=== PATIENT | male | born 1940 | race Caucasian/White ===

== ENCOUNTER 2019-10-28 09:37 | Inpatient (IN) ==
--- NOTE | 2019-10-08 13:10 | PAT Medication Instructions ---
Medication Instructions Date of Service October 08, 2019 Home Medications albuterol sulfate 1 inh INHALATION QID PRN albuterol sulfate 2.5 mg INHALATION Q6H PRN aspirin [Aspirin Low Dose] 81 mg PO DAILY beclomethasone dipropionate [Qvar RediHaler] 4 inh INHALATION Q12H cyclosporine [Cequa] 1 drp OPHTHALMIC (EYE) Q12H doxycycline monohydrate 50 mg PO DAILY isosorbide mononitrate 60 mg PO QAM labetalol 200 mg PO BID losartan 100 mg PO HS magnesium chloride [Slow-Mag] 143 mg PO HS montelukast 10 mg PO HS [id number] [Multivitamin 50 Plus] 1 tab PO DAILY nitroglycerin [Nitrostat] 0.4 mg BUCCAL UD PRN pantoprazole 40 mg PO QPM potassium gluconate 595 mg PO DAILY probenecid 500 mg PO BID psyllium husk [Metamucil] 1 tbsp PO DAILY salmeterol [Serevent Diskus] 2 inh INHALATION BID tamsulosin 0.4 mg PO BID Continue as directed doxycycline monohydrate 50 mg PO DAILY ASK your prescriber and surgeon aspirin [Aspirin Low Dose] 81 mg PO DAILY DO NOT take the morning of surgery dybrwwaiqdfk-ugyoaosm-vzopix [Multivitamin 50 Plus] 1 tab PO DAILY potassium gluconate 595 mg PO DAILY psyllium husk [Metamucil] 1 tbsp PO DAILY probenecid 500 mg PO BID (per Robinson Willson, VINH) Take morning of surgery With a small sip of water, OTHERWISE NOTHING TO EAT OR DRINK AFTER MIDNIGHT: albuterol sulfate 1 inh INHALATION QID PRN (if needed) albuterol sulfate 2.5 mg INHALATION Q6H PRN (if needed) beclomethasone dipropionate [Qvar RediHaler] 4 inh INHALATION Q12H cyclosporine [Cequa] 1 drp OPHTHALMIC (EYE) Q12H isosorbide mononitrate 60 mg PO QAM labetalol 200 mg PO BID salmeterol [Serevent Diskus] 2 inh INHALATION BID tamsulosin 0.4 mg PO BID Take evening before surgery albuterol sulfate 1 inh INHALATION QID PRN (if needed) albuterol sulfate 2.5 mg INHALATION Q6H PRN (if needed) beclomethasone dipropionate [Qvar RediHaler] 4 inh INHALATION Q12H cyclosporine [Cequa] 1 drp OPHTHALMIC (EYE) Q12H labetalol 200 mg PO BID losartan 100 mg PO HS magnesium chloride [Slow-Mag] 143 mg PO HS montelukast 10 mg PO HS pantoprazole 40 mg PO QPM probenecid 500 mg PO BID (per Robinson Willson PAC) salmeterol [Serevent Diskus] 2 inh INHALATION BID tamsulosin 0.4 mg PO BID Other Notes If you have any questions please call us at [phone] or [phone] or [phone] or [phone]
--- NOTE | 2019-10-08 13:22 | Anesthesiology Consultation ---
Date of Service October 08, 2019 Assessment & Plan (1) Encounter for pre-operative examination: COVID Status: As of 10/07 assessment, patient denies travel to endemic area, known exposure/sick contacts, or symptoms of COVID19. Patient instructed to follow strict social distancing guidelines, wear a mask in public and avoid travel for 14 days prior to surgery. Preoperative COVID19 testing to be completed prior to surgery. Patient made aware to self-isolate as much as possible between COVID testing and surgery. Chart Review Chart Review: Acceptable Risk for Surgery (pending surgeon-ordered cardio clearance 10/14 - Madie) and Patient seen in Pre Admission Testing Teaching & Discussion Instructed NPO after midnight before surgery, except medications with 15 cc of water. Medication instructions provided according to the PAT guidelines. History Surgery Operation Date: 10/28/19 11:45 Proposed Procedures p L4-S1 Decompression and Fusion, Spinal Cord Monitoring - Ramo Antonio, Height/Weight Height: 5 ft 10 in Weight: 102.3 kg Allergies Allergy/AdvReac Type Severity Reaction Status Date / Time diphtheria,pertussis Allergy Severe arm Verified 10/03/19 11:57 (acellular),te swelling [From Adacel(Tdap and redness Adolesn/Adult)(PF)] iodine Allergy Severe Hives Verified 10/03/19 11:55 dissolvable stitches AdvReac Severe does not Uncoded 10/03/19 11:57 disolve Medications Home Medications Medication Instructions Recorded Confirmed Last Taken albuterol sulfate 1 inh INHALATION QID PRN 10/03/19 10/03/19 Unknown albuterol sulfate 2.5 mg INHALATION Q6H PRN 10/03/19 10/03/19 Unknown aspirin [Aspirin Low Dose] 81 mg PO DAILY 10/03/19 10/03/19 Unknown beclomethasone dipropionate [Qvar 4 inh INHALATION Q12H 10/03/19 10/03/19 Unknown RediHaler] cyclosporine [Cequa] 1 drp OPHTHALMIC (EYE) Q12H 10/03/19 10/03/19 Unknown doxycycline monohydrate 50 mg PO DAILY 10/03/19 10/03/19 Unknown isosorbide mononitrate 60 mg PO QAM 10/03/19 10/03/19 Unknown labetalol 200 mg PO BID 10/03/19 10/03/19 Unknown losartan 100 mg PO HS 10/03/19 10/03/19 Unknown magnesium chloride [Slow-Mag] 143 mg PO HS 10/03/19 10/03/19 Unknown montelukast 10 mg PO HS 10/03/19 10/03/19 Unknown kkfvkgqkrlpr-rypnhyma-wihnci 1 tab PO DAILY 10/03/19 10/03/19 Unknown [Multivitamin 50 Plus] nitroglycerin [Nitrostat] 0.4 mg BUCCAL UD PRN 10/03/19 10/03/19 Unknown pantoprazole 40 mg PO QPM 10/03/19 10/03/19 Unknown potassium gluconate 595 mg PO DAILY 10/03/19 10/03/19 Unknown probenecid 500 mg PO BID 10/03/19 10/03/19 Unknown psyllium husk [Metamucil] 1 tbsp PO DAILY 10/03/19 10/03/19 Unknown salmeterol [Serevent Diskus] 2 inh INHALATION BID 10/03/19 10/03/19 Unknown tamsulosin 0.4 mg PO BID 10/03/19 10/03/19 Unknown Past Medical History Medical History Arteriolosclerosis Asthma BPH (benign prostatic hyperplasia) Chronic back pain CKD (chronic kidney disease) Cyst of left kidney monitoring. (found on MRI). no problems noted. Degenerative disc disease GERD (gastroesophageal reflux disease) Gout Hiatal hernia Hypertension Irregular heartbeat Dr. Ramachandran. unsure of name of irregular heartbeat Liver cyst "cluster of blood vessels" monitoring Osteoarthritis Sleep apnea CPAP (recently dx'd 09/05/2019) - to receive machine next week Spinal stenosis Exercise / Class Metabolic Activity II 4-5 Yardwork/Stairs/Walk up hill (Denies CP or SOB with 1 FOS, does 13 steps at home almost daily but limited by lumbar radiculopathy) Past Family History Family History Other No family history of adverse response to anesthesia Past Surgical History Surgical History H/O knee surgery right open ligament repair History of cardiac cath x2 (most recent in the early ). no stents. no [place]. History of cataract surgery bilateral History of cholecystectomy History of colonoscopy S/P breast biopsy right (benign) S/P inguinal hernia repair left x2 Past Anesthesia History No Hx of Anesthesia Complications and No Family Hx of Anesthesia Complications History of PONV No Hx of PONV and No Hx of Motion Sickness Social History Smoking Status: Former smoker tobacco type: cigarettes Do You Dip or Chew Tobacco: No Smoking End Date: 1978 Hx Alcohol Use: Yes alcohol intake frequency: holidays/special occasions only Hx Substance Use: No substance use type: does not use Review of Systems Pt denies any recent chest pain, shortness of breath, palpitations, fever or URI. +cough, chronic 2/2 asthma Physical Exam Vital Signs BP: 112/67 P: 75% RA SPO2: 95% RA T: 98.1 F R: 18 ENMT Mouth: + dentures (partial upper and lower) and + dental restorations (few crowns); no chipped teeth and no loose teeth Mallampati Class: I Neck + limited neck extension (mildly) and + facial hair (bushy gallegos, pt amenable to trimming prior to surgery) Respiratory normal respiratory effort Auscultation: lungs clear to auscultation bilaterally Cardiovascular Rate/Rhythm: regular rate and regular rhythm Heart Sounds: no murmur Testing Laboratory Results 10/08/19 13:02 10/08/19 13:00 PT 10.5 Seconds (9.0-12.0) 10/08/19 13:02 INR 1.0 (0.9-1.1) 10/08/19 13:02 APTT 29.4 Seconds (21.0-31.0) 10/08/19 13:02 Urine Color Yellow 10/08/19 13:02 Urine Appearance Clear (Clear) 10/08/19 13:02 Urine pH 5.0 (4.5-7.5) 10/08/19 13:02 Ur Specific [place] 1.022 (1.000-1.030) 10/08/19 13:02 Urine Protein Negative (Negative) 10/08/19 13:02 Urine Glucose (UA) Negative (Negative) 10/08/19 13:02 Urine Ketones Negative (Negative) 10/08/19 13:02 Urine Nitrite Negative (Negative) 10/08/19 13:02 Ur Leukocyte Esterase Negative (Negative) 10/08/19 13:02 Blood Type A Negative 10/08/19 12:18 Antibody Screen NEGATIVE 10/08/19 12:18 Electrocardiogram Date: 03/19/19 Findings: + NSR @ (62bpm) Left axis deviation. Slight IVCD. Chest X-Ray Date: 10/08/19 Findings: + NAD Echocardiogram Date: 11/09/16 EF: 55% Dilated right ventricle with normal function. Moderately dilated left atrium. Mildly dilated right atrium. Mild aortic and mitral regurgitation. Mild pulmonic regurgitation. The aortic root is enlarged.
--- NOTE | 2019-10-08 13:46 | XRay Report ---
XR chest Pre-admission PA/Lat CLINICAL HISTORY: pat preoperative evaluation COMPARISON STUDY: No previous studies for comparison. FINDINGS: The bones soft tissues and hemidiaphragms are normal. The cardiomediastinal silhouette is n ormal. The lungs are clear. The pulmonary vasculature is normal. IMPRESSION: Negative chest. ACT 112: Negative or not required by law. The above report was generated using voice recognition software. It may contain grammatical, syntax or spelling errors. Electronically signed by: Zeferino Bowens M.D. 10/08/2019 1:44 PM
[2019-10-08 14:17] LABS: Basophils # (auto) 0.07 K/uL (0-0.2); Basophils % (auto) 0.8 %; Eosinophils # (auto) 0.26 K/uL (0-0.5); Eosinophils % (auto) 2.9 %; Hematocrit (blood only) 46.1 % (42-52); Hemoglobin 14.7 g/dL (14.0-18.0); Immature Granulocytes # (auto) 0.01 K/uL (0.00-0.02); Immature Granulocytes % (auto) 0.1 %; Lymphocytes # (auto) 1.44 K/uL (1.2-3.4); Lymphocytes % (auto) 16.2 %; Mean Corpuscular Hemoglobin 29.8 pg (25-34); Mean Corpuscular Hgb Conc 31.9 g/dL (32-36); Mean Corpuscular Volume 93.5 fL (80-100); Mean Platelet Volume 10.3 fL (7.4-10.4); Monocytes # (auto) 0.51 K/uL (0.11-0.59); Monocytes % (auto) 5.7 %; Neutrophils # (auto) 6.59 K/uL (1.4-6.5); Neutrophils % (auto) 74.3 %; Platelet Count 347 K/uL (130-400); RDW Coefficient of Variation 14.1 % (11.5-14.5); RDW Standard Deviation 48.4 fL (36.4-46.3); Red Blood Count 4.93 M/uL (4.7-6.1); White Blood Count 8.88 K/uL (4.8-10.8)
[2019-10-08 14:27] LABS: Partial Thromboplastin Ratio 1.1; Partial Thromboplastin Time 29.4 Seconds (21.0-31.0); Prothrombin Time 10.5 Seconds (9.0-12.0)
[2019-10-08 14:34] LABS: Appearance Urine Clear (Clear); Bilirubin Urine Negative (Negative); Blood Urine Negative (Negative); Color Urine Yellow; Glucose Urine UA Negative (Negative); Ketones Urine Negative (Negative); Leukocyte Esterase Urine Negative (Negative); Nitrite Urine Negative (Negative); Protein Urine Negative (Negative); Specific Gravity Urine 1.022 (1.000-1.030); Urobilinogen Urine Negative (Negative)
[2019-10-08 15:27] LABS: BUN Creatinine Ratio 12.8 (10-20); Creatinine Clr Calc Pharmacy 48.5 ml/min; Est GFR (African American) 50.1; Est GFR (Non-African American) 43.2; Potassium 4.7 mmol/L (3.5-5.1)
[~2019-10-28 09:37] MED LIST: ACETAMINOPHEN 500 MG TAB PO SCH; CEFAZOLIN 2000MG 2,000 MG/15 ML SYR IV SCH; CeleBREX 200 MG CAP PO SCH; GABAPENTIN 300 MG CAP PO SCH; LR 15ML/HR IV SCH
[2019-10-28] MEDS ORDERED: ROCURONIUM BROMIDE 10 MG/ML 5 ML VIAL IV ONE ×3 (10:25→13:18)
[2019-10-28] MEDS ORDERED: GLYCOPYRROLATE 0.2 MG/ML VIAL ONE (10:25)
[2019-10-28] MEDS ORDERED: PROPOFOL IV EMULSION 10 MG/ML 20 ML VIAL IV ONE (10:25)
[2019-10-28] MEDS ORDERED: ONDANSETRON INJ 2 MG/ML 2 ML VIAL ONE (10:25)
[2019-10-28] MEDS ORDERED: NEOSTIGMINE METHYLSULFATE 1 MG/ML 10ML VIAL ONE (10:25)
[2019-10-28] MEDS ORDERED: DEXAMETHASONE SOD INJ 4 MG/ML VIAL ONE (10:25)
[2019-10-28] MEDS ORDERED: fentaNYL citrate 100 MCG/2 ML VIAL ONE ×2 (10:26→13:12)
[2019-10-28] MEDS ORDERED: MIDAZOLAM HCL 1 MG/ML 2ML VIAL ONE (10:26)
[2019-10-28] MEDS ORDERED: ATROPINE SULFATE 0.1 MG/ML 10ML SYR IV PRN (11:16)
[2019-10-28] MEDS ORDERED: HYDROmorphone INJ 2 MG/ML SYR/VIAL IV PRN (11:16)
[2019-10-28] MEDS ORDERED: PROMETHAZINE HCL 12.5 MG in SODIUM CHLORIDE 0.9% 50 ML IV PRN ×2 (11:16→16:06)
[2019-10-28] MEDS ORDERED: ePHEDrine sulfate 50 MG/ML AMP IV PRN (11:16)
[2019-10-28] MEDS ORDERED: METOCLOPRAMIDE HCL INJ 5 MG/ML 2 ML VIAL IV PRN ×2 (11:16→16:06)
[2019-10-28] MEDS ORDERED: fentaNYL citrate 100 MCG/2 ML VIAL IV PRN (11:16)
[2019-10-28] MEDS ORDERED: ONDANSETRON INJ 2 MG/ML 2 ML VIAL IV PRN ×2 (11:16→16:06)
--- NOTE | 2019-10-28 12:16 | History & Physical Bridge Note ---
Date of Service October 28, 2019 History & Physical Bridge Note I have examined the patient, reviewed the History & Physical and in the interval since the performance of the History & Physical I have noted the following changes of clinical significance: no changes noted
--- NOTE | 2019-10-28 12:17 | History & Physical Report ---
Date of Service October 28, 2019 Assessment & Plan (1) Neurogenic claudication due to lumbar spinal stenosis: L4-S1 decompression fusion Present on Admission?: Yes History of Present Illness Chief Complaint: Back and bilateral leg pain Primary Care Provider: Joel Sanchez Capp, This is a 79-year-old male who presents with worsening back and bilateral leg pain. After failing extensive course of nonoperative care is here for surgical invention. Allergies Allergy/AdvReac Type Severity Reaction Status Date / Time diphtheria,pertussis Allergy Severe arm Verified 10/28/19 09:57 (acellular),te swelling [From Adacel(Tdap and redness Adolesn/Adult)(PF)] iodine Allergy Severe Hives Verified 10/28/19 09:57 dissolvable stitches AdvReac Severe does not Uncoded 10/28/19 09:57 disolve Home Medications Home Medications Medication Instructions Recorded Confirmed Type albuterol sulfate 1 inh INHALATION QID PRN 10/03/19 10/28/19 History albuterol sulfate 2.5 mg INHALATION Q6H PRN 10/03/19 10/28/19 History aspirin [Aspirin Low Dose] 81 mg PO DAILY 10/03/19 10/28/19 History beclomethasone dipropionate [Qvar 4 inh INHALATION Q12H 10/03/19 10/28/19 History RediHaler] cyclosporine [Cequa] 1 drp OPHTHALMIC (EYE) Q12H 10/03/19 10/28/19 History doxycycline monohydrate 50 mg PO DAILY 10/03/19 10/28/19 History isosorbide mononitrate 60 mg PO QAM 10/03/19 10/28/19 History labetalol 200 mg PO BID 10/03/19 10/28/19 History losartan 100 mg PO HS 10/03/19 10/28/19 History magnesium chloride [Slow-Mag] 143 mg PO HS 10/03/19 10/28/19 History montelukast 10 mg PO HS 10/03/19 10/28/19 History ucepymqxgykl-nuaigeuq-jjdsfo 1 tab PO DAILY 10/03/19 10/28/19 History [Multivitamin 50 Plus] nitroglycerin [Nitrostat] 0.4 mg BUCCAL UD PRN 10/03/19 10/28/19 History pantoprazole 40 mg PO QPM 10/03/19 10/28/19 History potassium gluconate 595 mg PO DAILY 10/03/19 10/28/19 History probenecid 500 mg PO BID 10/03/19 10/28/19 History psyllium husk [Metamucil] 1 tbsp PO DAILY 10/03/19 10/28/19 History salmeterol [Serevent Diskus] 2 inh INHALATION BID 10/03/19 10/28/19 History tamsulosin 0.4 mg PO BID 10/03/19 10/28/19 History Past Med/Surg History Medical History Arteriolosclerosis Asthma BPH (benign prostatic hyperplasia) Chronic back pain CKD (chronic kidney disease) Cyst of left kidney monitoring. (found on MRI). no problems noted. Degenerative disc disease GERD (gastroesophageal reflux disease) Gout Hiatal hernia Hypertension Irregular heartbeat Dr. Ramachandran. unsure of name of irregular heartbeat Liver cyst "cluster of blood vessels" monitoring Osteoarthritis Sleep apnea CPAP (recently dx'd 09/05/2019) - to receive machine next week Spinal stenosis Surgical History H/O knee surgery right open ligament repair History of cardiac cath x2 (most recent in the early ). no stents. no [place]. History of cataract surgery bilateral History of cholecystectomy History of colonoscopy S/P breast biopsy right (benign) S/P inguinal hernia repair left x2 Family History Other No family history of adverse response to anesthesia Social History Smoking Status: Former smoker Smoking End Date: 1978; Second Hand Exposure: No; Do You Dip or Chew Tobacco: No; Tobacco Cessation Education Requested by Patient: No Hx Alcohol Use: Yes Hx Substance Use: No Preferred Language: Romanian Communication Ability: Effective Gag Writer Required: No Beliefs That Will Affect Care: None Current Living Situation: Alone Other Information That Helps Us Care for You: No Feels Safe at Home: Yes Safety Concerns: Feels Safe At This Time Physical Exam Physical Exam: Patient is alert and oriented neurologically intact. Results & Data Vital Signs (Past 12 Hours) Vital Signs Temp Pulse Resp BP Pulse Ox 10/28/19 10:01 36.6 C 66 20 149/77 H 96
[2019-10-28] MEDS ORDERED: EPINEPHrine INJ 1 MG/ML AMP ONE (12:25)
[2019-10-28] MEDS ORDERED: BUPIVACAINE 0.5 % 5 MG/1 ML MPF 30ML VIAL ONE (12:25)
[2019-10-28] MEDS ORDERED: BACITRACIN INJ 50,000 UNIT VIAL ONE (12:26)
[2019-10-28] MEDS ORDERED: HYDROmorphone INJ 2 MG/ML SYR/VIAL ONE (14:26)
[2019-10-28] MEDS ORDERED: FLOSEAL HEMOSTATIC MATRIX 10ML TOP ONE (14:46)
--- NOTE | 2019-10-28 14:55 | Operative Report ---
Post Operative Report Pre & Post Diagnosis Operation Date: 10/28/19 11:20 Pre-Op Diagnosis: Lumbar Spinal Stenosis with neurogenic claudication Post-Op Diagnosis: Lumbar Spinal Stenosis with neurogenic claudication I identified the patient and participated in the time-out.: Yes Procedure Operation Date: 10/28/19 11:20 Actual Procedures #1 lumbar decompression with bilateral medial facetectomies and foraminotomies L3-4, L4-5 and L5-S1 peer #2 posterior spinal fusion L4-5 L5-S1. #3 placement posterior instrumentation L4-5 L5-S1. #4 placement local autograft in the posterior lateral gutters. #5 placement infuse collagen sponge, master graft in the posterior lateral gutters. Surgeon Rmao Antonio, Trauma Nurse Denia Barajas Estimated Blood Loss 250 Findings Consistent with Post-Op Diagnosis Specimens None Indications This is a 79-year-old male who presents with above-mentioned diagnosis after failing course of nonoperative care is here for the above-mentioned procedure. Description of Procedure Patient was met with identified informed consent obtained. Patient was then taken to the operative suite underwent intubation placed in the prone position the Edgard table on top of the Srinivas frame. All bony prominences well-padded eyes inspected to ensure no external pressure placed upon the. This point the lumbar spine was prepped and draped in normal sterile fashion. Sharp dissection with the assistance of Bovie cautery was performed down to and exposing the lamina and transverse processes of L4-L5 and sacral ala bilaterally. From caudal cephalad fashion complete laminectomy of L5 L4 partial laminectomy of L3 was performed including bilateral medial facetectomies and foraminotomies addressing severe spinal stenosis. Pedicle screws were then placed in L4-L5 and S1 levels bilaterally with assistance of fluoroscopy and appropriate size kirill locked into position. Transverse processes of L4-5 and sacral ala were then burred to subcortical bleeding bone. Infuse collagen sponge master graft local autograft was then placed in the posterior gutters. 15 round JORGE drain inserted. Incision was then closed with 1 Vicryl the fascia 2-0 Vicryl subcutaneously and 4 Monocryl for final skin closure. Steri-Strip sterile dressings placed. Patient will continue PACU stable condition. Please note spinal cord monitoring was utilized that the procedure no changes noted. Lastly Denia Barajas was present at the entire procedure.the patient positioning complex portions of the surgery and final skin closure. I attest to the content of the Intraoperative Record and any orders documented therein. Any exceptions are noted below.
--- NOTE | 2019-10-28 15:14 | Fluoroscopy Report ---
FL lumbar spine 2-3V CLINICAL HISTORY: L4-S1 DECOMPRESSION/FUSION/INTERBODY COMPARISON STUDY: None. FLUOROSCOPY TIME: 27 seconds. FLUOROSCOPIC IMAGES: 2. FINDINGS: These images demonstrate a posterior decompression. There are bilateral pedicle screws at t he L4, L5 and S1 levels. Interconnecting rods are present. The hardware is intact. IMPRESSION: Fluoroscopy provided for posterior decompression with L4-S1 bilateral pedicle screw fusi on. ACT 112: Negative or not required by law. Electronically signed by: Santhosh Gilmore M.D. 10/28/2019 3:13 PM
--- NOTE | 2019-10-28 15:35 | Anesthesiology Progress Note ---
Date of Service October 28, 2019 Anesthesia Post Procedure Vital Signs Vital Signs: Temp Pulse Pulse Resp BP Pulse Ox 10/28/19 15:25 50 L 12 111/65 100 10/28/19 15:15 59 L 13 106/62 99 10/28/19 15:07 36.0 C L 71 12 132/59 L 97 10/28/19 10:01 36.6 C 66 20 149/77 H 96 Transfer of Care Handoff Completed per policy Notes Mental Status: alert / awake / arousable Patient Amnestic to Procedure: Yes Nausea / Vomiting: adequately controlled Pain: adequately controlled Airway Patency, RR, SpO2: stable & adequate BP & HR: stable & adequate Hydration State: stable & adequate Anesthetic Complications: no major complications apparent and Pt Satisfied with anesthetic care
[2019-10-28] MEDS ORDERED: ONDANSETRON 4 MG OD TAB PO PRN (16:06)
[2019-10-28] MEDS ORDERED: ACETAMINOPHEN 500 MG TAB PO PRN (16:06)
[2019-10-28] MEDS ORDERED: LORazepam 0.5 MG/1 ML VIAL IV PRN (16:06)
[2019-10-28] MEDS ORDERED: DO NOT ADMINISTER FLU VACCINE PRN (16:06)
[2019-10-28] MEDS ORDERED: NALOXONE HCL 0.4 MG/1 ML VIAL/CARP IV PRN (16:06)
[2019-10-28] MEDS ORDERED: ACETAMINOPHEN 1,000 MG/100 ML VIAL IV PRN (16:06)
[2019-10-28] MEDS ORDERED: HYDROmorphone INJ 0.5 MG/0.5 ML SYR IV PRN (16:06)
[2019-10-28] MEDS ORDERED: ALUMINUM/MAGNESIUM SUSP 30 ML UDC PO PRN (16:06)
[2019-10-28] MEDS ORDERED: DO NOT ADMINISTER PNEUMOCOCCAL VACCINE PRN (16:06)
[2019-10-28] MEDS ORDERED: LORazepam 0.5 MG TAB PO PRN (16:06)
[2019-10-28] MEDS ORDERED: TRAMADOL HCL 50 MG TABLET PO PRN (16:06)
[2019-10-28] MEDS ORDERED: bisacodyL 10 MG SUPP PR PRN (16:06)
[2019-10-28] MEDS ORDERED: MAGNESIUM HYDROXIDE SUSP 30 ML UDC PO PRN (16:06)
[2019-10-28] MEDS ORDERED: FAMOTIDINE 20 MG TAB PO PRN (16:06)
[2019-10-28] MEDS ORDERED: SOD PHOSPHATE/SOD BIPHOSPHATE ENEMA 132 ML BTL PR PRN (16:06)
[2019-10-28] MEDS ORDERED: NITROGLYCERIN SL 0.4 MG/TAB TAB SL PRN (16:06)
--- NOTE | 2019-10-28 17:14 | Hospitalist Consultation ---
Date of Consultation October 28, 2019 Assessment & Plan (1) S/P spinal surgery: This is a 79-year-old male with PMH of nonobstructive CAD, asthma/COPD, BPH, GERD, HTN, DASIA on CPAP, CKD and other medical problems listed below who is POD#0 s/p lumbar decompression fusion L4-S1 by Dr. Antonio. -POD#0 s/p lumbar decompression fusion L4-S1 by Dr. Antonio -Pt is doing well post-operatively -Per ortho for pain control, wound care, anticoagulation and activities -Monitor H&H (EBL: 250 ml, JORGE 70 ml), continue incentive spirometry, PT/OT when appropriate (2) CAD (coronary artery disease): Underwent preop cardiac catheterization on October 23 with evidence of mild nonocclusive CAD -Continue aspirin, statin, imdur (3) Hypertension: Continue losartan, labetalol with hold parameters (4) CKD (chronic kidney disease): CKD documented on OP paperwork (level unspecified). Baseline Cr unknown- monitor with BMP in AM (5) Asthma: Continue home Qvar, Serevent Diskus inhalers, Singulair HS (6) BPH (benign prostatic hyperplasia): Continue tamsulosin (7) GERD (gastroesophageal reflux disease): Continue Protonix (8) History of cataract surgery: Continue doxycycline daily and Cequa drops for dry eyes (9) Sleep apnea: Brought CPAP from home to use HS PCP: Major Hurst) Dispo: Per primary service. Thank you for this consultation. We will follow the patient with you during their hospital stay. You can reach a member of the [facility] Hospitalist Team 24/10 via pager @ [phone]. Patient seen in collaboration with Dr. Garrett. Please see addendum. Supervising Physician Co-Signing Physician Notes HISTORY: Record reviewed. Patient interviewed and examined. Care coordinated with Nisreen Townsend PA-C; please refer to her documentation for complete history. Briefly, 79 YO male with history of coronary artery disease, hypertension, asthma, sleep apnea, and other problems. Underwent lumbar decompression / fusion today. Doing fairly well postoperatively. Had some nausea, improved. Having some leg cramps. No chest pain, cough, SOB, vomiting. Pain fairly well-controlled. EXAM: General- no distress Lungs- clear to auscultation; no respiratory distress Cardiovascular- RRR; no gallop; no JVD; no pretibial edema Abdomen- + bowel sounds, soft, nontender - Walter cath Extremities- no cyanosis; no calf tenderness; SCD's applied Neuro- alert, oriented Skin- warm & dry DATA: Preop labs 10/07 notable for BUN 20, creatinine 1.53. Other lab studies as noted. Chest x-ray performed 10/07 unremarkable. ASSESSMENT AND PLAN: S/P LUMBAR DECOMPRESSION / FUSION Doing well postoperatively. CORONARY ARTERY DISEASE No anginal symptoms. Recent cath did not show any significant stenoses. Continue labetalol and nitrates. Resume aspirin when OK from surgical perspective. HYPERTENSION Hemodynamically stable. Continue labetalol, nitrates, losartan. ASTHMA Pulmonary status stable. Continue usual meds. Incentive spirometry. SLEEP APNEA Continue CPAP. LEG CRAMPS Check K, Mg. Please refer to ANISHA Townsend's documentation for discussion of other issues. Thank you for this consultation. We will follow the patient with you during their hospital stay. My cell # is [phone]. You can reach a member of the [facility] Medicine Team 24/10 via pager @ [phone]. History of Present Illness Reason for Consultation: Postop medical management Attending Physician: Ramo Antonio, DO History of Present Illness This is a 79-year-old male with PMH of nonobstructive CAD, asthma/COPD, BPH, GERD, HTN, DASIA on CPAP, CKD and other medical problems listed below who is POD#0 s/p lumbar decompression fusion L4-S1 by Dr. Antonio. Patient is feeling pretty well postoperatively. Endorses pressure at surgical site and some lightheadedness he attributes to medication given to him postoperatively. Denies any fever, chills, visual changes, palpitations, chest pain or shortness of breath. Tolerating clear liquid diet without issue. Denies any nausea, vomiting or abdominal pain. No dysuria or hematuria. Last BM this morning. Follows with Dr. Gonsalves in [place]. Underwent preop cardiac catheterization on October 23 with evidence of mild nonocclusive CAD. Allergies Allergy/AdvReac Type Severity Reaction Status Date / Time diphtheria,pertussis Allergy Severe arm Verified 10/28/19 09:57 (acellular),te swelling [From Adacel(Tdap and redness Adolesn/Adult)(PF)] iodine Allergy Severe Hives Verified 10/28/19 09:57 dissolvable stitches AdvReac Severe does not Uncoded 10/28/19 09:57 disolve Home Medications Home Medications Medication Instructions Recorded Confirmed Type albuterol sulfate 1 inh INHALATION QID PRN 10/03/19 10/28/19 History albuterol sulfate 2.5 mg INHALATION Q6H PRN 10/03/19 10/28/19 History aspirin [Aspirin Low Dose] 81 mg PO DAILY 10/03/19 10/28/19 History beclomethasone dipropionate [Qvar 4 inh INHALATION Q12H 10/03/19 10/28/19 His tory RediHaler] cyclosporine [Cequa] 1 drp OPHTHALMIC (EYE) Q12H 10/03/19 10/28/19 History doxycycline monohydrate 50 mg PO DAILY 10/03/19 10/28/19 History isosorbide mononitrate 60 mg PO QAM 10/03/19 10/28/19 History labetalol 200 mg PO BID 10/03/19 10/28/19 History losartan 100 mg PO HS 10/03/19 10/28/19 History magnesium chloride [Slow-Mag] 143 mg PO HS 10/03/19 10/28/19 History montelukast 10 mg PO HS 10/03/19 10/28/19 History bexoannuomqz-gpujhphq-jocqct 1 tab PO DAILY 10/03/19 10/28/19 History [Multivitamin 50 Plus] nitroglycerin [Nitrostat] 0.4 mg BUCCAL UD PRN 10/03/19 10/28/19 History pantoprazole 40 mg PO QPM 10/03/19 10/28/19 History potassium gluconate 595 mg PO DAILY 10/03/19 10/28/19 History probenecid 500 mg PO BID 10/03/19 10/28/19 History psyllium husk [Metamucil] 1 tbsp PO DAILY 10/03/19 10/28/19 History salmeterol [Serevent Diskus] 2 inh INHALATION BID 10/03/19 10/28/19 History tamsulosin 0.4 mg PO BID 10/03/19 10/28/19 History Patient History Medical History Arteriolosclerosis Asthma BPH (benign prostatic hyperplasia) CAD (coronary artery disease) Chronic back pain CKD (chronic kidney disease) Cyst of left kidney monitoring. (found on MRI). no problems noted. Degenerative disc disease GERD (gastroesophageal reflux disease) Gout Hiatal hernia Hypertension Irregular heartbeat Dr. Ramachandran. unsure of name of irregular heartbeat Liver cyst "cluster of blood vessels" monitoring Osteoarthritis Sleep apnea CPAP (recently dx'd 09/05/2019) - to receive machine next week Spinal stenosis Surgical History H/O knee surgery right open ligament repair History of cardiac cath x3 (most recent in the early s, prior to the 10/24/19 cath). no stents. no SD. History of cataract surgery bilateral History of cholecystectomy History of colonoscopy S/P breast biopsy right (benign) S/P inguinal hernia repair left x2 Family History Other Brain tumor Heart disease No family history of adverse response to anesthesia Social History Smoking Status: Former smoker Smoking End Date: 1978; Second Hand Exposure: No; Do You Dip or Chew Tobacco: No; Tobacco Cessation Education Requested by Patient: No Hx Alcohol Use: Yes Alcohol Intake Frequency: Monthly or Less Hx Substance Use: No Preferred Language: Brazilian Communication Ability: Effective Director Of Adult Epilepsy Required: No Beliefs That Will Affect Care: None Current Living Situation: Alone Other Information That Helps Us Care for You: No Feels Safe at Home: Yes Safety Concerns: Feels Safe At This Time Review of Systems Review of Systems: At least ten systems reviewed and negative except as noted in the HPI. Physical Exam Physical Exam: General Appearance: WD/WN, vitals as above, NAD, sitting up in bed eating clears, pleasant, conversing easily Head: normocephalic, atraumatic Eyes: normal inspection, PERRL, conjunctivae normal, anicteric sclerae ENT: external ear and nose normal, oropharynx normal Neck: trachea midline, no thyromegaly, normal visual inspection Respiratory: normal respiratory effort, lungs clear to auscultation, no wheeze, rales, rhonchi. No accessory muscle use Cardiovascular: regular rate, rhythm, no murmur appreciated, normal peripheral pulses Chest: normal inspection of chest Abdomen/GI: normal bowel sounds, soft, nontender, no hepatosplenomegaly Extremities/Musculoskeletal: lumbosacral dressing clean, dry, intact. +JORGE drain. No cyanosis or clubbing, extremities motor strength 5/5 Neurologic: PERRL, EOMI, CN's II-XI intact bilaterally and moves all extremities Psychiatric: A+Ox3, euthymic affect Skin: no rashes, normal color, warm/dry Results & Data Results & Data ([facility]) Vital Signs (Past 12 Hours) Vital Signs Temp Pulse Pulse Pulse Resp BP Pulse Ox 10/28/19 17:11 36.3 C L 58 L 16 121/72 98 10/28/19 16:30 36.4 C L 50 L 14 123/75 99 10/28/19 16:05 36.4 C L 52 L 16 124/71 99 10/28/19 15:45 49 L 12 110/62 99 10/28/19 15:35 36.3 C L 53 L 20 112/68 99 10/28/19 15:25 50 L 12 111/65 100 10/28/19 15:15 59 L 13 106/62 99 10/28/19 15:07 36.0 C L 71 12 132/59 L 97 10/28/19 10:01 36.6 C 66 20 149/77 H 96 Laboratory Results Short CBC 10/08/19 10/08/19 10/08/19 Range/Units 12:18 13:00 13:02 RBC 4.93 (4.7-6.1) M/uL MCV 93.5 (80-100) fL MCH 29.8 (25-34) pg MCHC 31.9 L (32-36) g/dL RDW Std Deviation 48.4 H (36.4-46.3) fL RDW Coeff of Tim 14.1 (11.5-14.5) % MPV 10.3 (7.4-10.4) fL Immature Gran % (Auto) 0.1 % Neut % (Auto) 74.3 % Lymph % (Auto) 16.2 % Huron % (Auto) 5.7 % Eos % (Auto) 2.9 % Baso % (Auto) 0.8 % Neut # (Auto) 6.59 H (1.4-6.5) K/uL Lymph # (Auto) 1.44 (1.2-3.4) K/uL Huron # (Auto) 0.51 (0.11-0.59) K/uL Eos # (Auto) 0.26 (0-0.5) K/uL Baso # (Auto) 0.07 (0-0.2) K/uL Immature Gran # (Auto) 0.01 (0.00-0.02) K/uL PT (9.0-12.0) Seconds INR (0.9-1.1) APTT (21.0-31.0) Seconds PTT Ratio Sodium 142 (136-145) mmol/L Potassium 4.7 (3.5-5.1) mmol/L Chloride 110 H (98-107) mmol/L Carbon Dioxide 24 (21-32) mmol/L Anion Gap 8.0 (3-11) BUN 20 H (7-18) mg/dl Creatinine 1.53 H (0.6-1.4) mg/dl Est Cr Clr Drug Dosing 48.5 ml/min Est GFR ( Amer) 50.1 Est GFR (Non-Af Amer) 43.2 BUN/Creatinine Ratio 12.8 (10-20) Glucose 110 H (70-99) mg/dl Calcium 9.0 (8.5-10.1) mg/dl Urine Color Urine Appearance (Clear) Urine pH (4.5-7.5) Ur Specific Greer (1.000-1.030) Urine Protein (Negative) Urine Glucose (UA) (Negative) Urine Ketones (Negative) Urine Blood (Negative) Urine Nitrite (Negative) Urine Bilirubin (Negative) Urine Urobilinogen (Negative) Ur Leukocyte Esterase (Negative) Blood Type A Negative Antibody Screen NEGATIVE Crossmatch 10/08/19 10/08/19 10/28/19 Range/Units 13:02 13:02 10:16 RBC (4.7-6.1) M/uL MCV (80-100) fL MCH (25-34) pg MCHC (32-36) g/dL RDW Std Deviation (36.4-46.3) fL RDW Coeff of Tim (11.5-14.5) % MPV (7.4-10.4) fL Immature Gran % (Auto) % Neut % (Auto) % Lymph % (Auto) % Hur[place] % (Auto) % Eos % (Auto) % Baso % (Auto) % Neut # (Auto) (1.4-6.5) K/uL Lymph # (Auto) (1.2-3.4) K/uL Huron # (Auto) (0.11-0.59) K/uL Eos # (Auto) (0-0.5) K/uL Baso # (Auto) (0-0.2) K/uL Immature Gran # (Auto) (0.00-0.02) K/uL PT 10.5 (9.0-12.0) Seconds INR 1.0 (0.9-1.1) APTT 29.4 (21.0-31.0) Seconds PTT Ratio 1.1 Sodium (136-145) mmol/L Potassium (3.5-5.1) mmol/L Chloride (98-107) mmol/L Carbon Dioxide (21-32) mmol/L Anion Gap (3-11) BUN (7-18) mg/dl Creatinine (0.6-1.4) mg/dl Est Cr Clr Drug Dosing ml/min Est GFR ( Amer) Est GFR (Non-Af Amer) BUN/Creatinine Ratio (10-20) Glucose (70-99) mg/dl Calcium (8.5-10.1) mg/dl Urine Color Yellow Urine Appearance Clear (Clear) Urine pH 5.0 (4.5-7.5) Ur Specific Greer 1.022 (1.000-1.030) Urine Protein Negative (Negative) Urine Glucose (UA) Negative (Negative) Urine Ketones Negative (Negative) Urine Blood Negative (Negative) Urine Nitrite Negative (Negative) Urine Bilirubin Negative (Negative) Urine Urobilinogen Negative (Negative) Ur Leukocyte Esterase Negative (Negative) Blood Type A Negative Antibody Screen NEGATIVE Crossmatch See Detail Diagnostic Findings CXR: IMPRESSION: Negative chest.
[2019-10-28] MEDS: SODIUM CHLORIDE 0.9% 1000ML 1,000 ML IV SCH (17:55)
[2019-10-28] MEDS ORDERED: ALBUTEROL 0.083% NEBU SOLN 3 ML VIAL INH PRN (18:21)
[2019-10-28] MEDS ORDERED: ALBUTEROL HFA 8 GM INHALER INH PRN (18:21)
[2019-10-28] MEDS: HYDROmorphone INJ 1 MG/ML SYRINGE IV PRN (19:57)
[2019-10-28] MEDS: CEFAZOLIN 2000MG 2,000 MG/15 ML SYR IV SCH (20:09)
[2019-10-28] MEDS: MONTELUKAST SODIUM 10 MG TABLET PO SCH (20:13)
[2019-10-28] MEDS: LABETALOL HCL 200 MG TAB PO SCH (20:13)
[2019-10-28] MEDS: DOCUSATE SODIUM/SENNA 50/8.6MG TAB PO SCH (20:14)
[2019-10-28] MEDS: TAMSULOSIN HCL 0.4 MG CAP PO SCH (20:14)
[2019-10-28] MEDS: MAGNESIUM CHLORIDE 64MG DELAYED REL TAB PO SCH (20:15)
[2019-10-28] MEDS: PANTOprazole 40 MG TAB PO SCH (20:15)
[2019-10-28] MEDS: PROBENECID 500 MG TAB PO SCH (20:15)
[2019-10-28] MEDS ORDERED: LOSARTAN POTASSIUM 50 MG TAB PO SCH (21:00)
[2019-10-28 21:43] LABS: Potassium 4.9 mmol/L (3.5-5.1)
[2019-10-29] MEDS: SODIUM CHLORIDE 0.9% 1000ML 1,000 ML IV SCH (01:58)
[2019-10-29] MEDS: CEFAZOLIN 2000MG 2,000 MG/15 ML SYR IV SCH (03:47)
[2019-10-29] MEDS: OXYCODONE HCL IR 5 MG TAB (IMMEDIATE RELEASE) PO PRN ×3 (03:55→19:30)
[2019-10-29] MEDS: POLYETHYLENE (MIRALAX) 17 GM PACK PO SCH ×4 (05:34→23:09)
[2019-10-29 07:03] LABS: Basophils # (auto) 0.02 K/uL (0-0.2); Basophils % (auto) 0.2 %; Eosinophils # (auto) 0.09 K/uL (0-0.5); Eosinophils % (auto) 0.7 %; Hematocrit (blood only) 39.5 % (42-52); Hemoglobin 12.7 g/dL (14.0-18.0); Immature Granulocytes # (auto) 0.02 K/uL (0.00-0.02); Immature Granulocytes % (auto) 0.2 %; Lymphocytes # (auto) 1.78 K/uL (1.2-3.4); Lymphocytes % (auto) 14.5 %; Mean Corpuscular Hgb Conc 32.2 g/dL (32-36); Mean Corpuscular Volume 93.2 fL (80-100); Mean Platelet Volume 9.9 fL (7.4-10.4); Monocytes # (auto) 0.73 K/uL (0.11-0.59); Monocytes % (auto) 5.9 %; Neutrophils # (auto) 9.65 K/uL (1.4-6.5); Neutrophils % (auto) 78.5 %; Platelet Count 255 K/uL (130-400); RDW Coefficient of Variation 14.3 % (11.5-14.5); RDW Standard Deviation 48.2 fL (36.4-46.3); Red Blood Count 4.24 M/uL (4.7-6.1); White Blood Count 12.29 K/uL (4.8-10.8)
[2019-10-29 07:32] LABS: BUN Creatinine Ratio 14.1 (10-20); Calcium 8.3 mg/dl (8.5-10.1); Creatinine Clr Calc Pharmacy 54.7 ml/min; Est GFR (African American) 58.3; Est GFR (Non-African American) 50.3
[2019-10-29] MEDS: DOXYCYCLINE HYCLATE 50 MG CAP PO SCH (08:30)
[2019-10-29] MEDS: CEROVITE ADV FORMULA TAB PO SCH (08:30)
[2019-10-29] MEDS: ISOSORBIDE MONO EXTENDED REL 60 MG TABCR PO SCH (08:31)
[2019-10-29] MEDS: TAMSULOSIN HCL 0.4 MG CAP PO SCH ×2 (08:31→20:48)
[2019-10-29] MEDS: LABETALOL HCL 200 MG TAB PO SCH ×2 (08:31→20:48)
[2019-10-29] MEDS: FLUTICASONE FUROATE 200MCG 14 PUFFS/INHALER INH SCH (08:31)
[2019-10-29] MEDS: PROBENECID 500 MG TAB PO SCH ×2 (08:31→20:48)
[2019-10-29] MEDS: ASPIRIN 81 MG ECTAB PO SCH (08:32)
[2019-10-29] MEDS: OLODATEROL HCL 2.5MCG/ACTUATION 60 PUFFS/INHALER INH SCH (08:33)
[2019-10-29] MEDS ORDERED: NON-FORMULARY MEDICATION (Potassium Gluconate 595 MG) PO SCH (09:00)
--- NOTE | 2019-10-29 09:21 | Hospitalist Progress Note ---
Date of Service October 29, 2019 Assessment & Plan (1) S/P spinal surgery: anemia as a result of acute blood loss in context of surgery -This is a 79-year-old male with PMH of nonobstructive CAD, asthma/COPD, BPH, GERD, HTN, DASIA on CPAP, CKD and other medical problems listed below who is s/p lumbar decompression fusion L4-S1 by Dr. Antonio on 10/28/2019 (estimated blood loss in OR of 250 ml) -management of JORGE drain as per orthopedics -10/29/2019: Patient seen and examined in the AM. His blood pressure at 7 AM noted to be low as 95/58 but patient is asymptomatic. no dizziness. no lightheadedness. will give IV fluids as 250 bolus and a hold order is placed on losartan 100 mg qhs for now he is laying on the bed. his back feeling sore but no acute severe back pain. There is JORGE drain to the back with serosanguinous fluid. Cárdenas is in place. He is awaiting to be seen by PT/OT. He has passed gas. No bowel movement yet since the surgery on 10/28/2019. no nausea. no vomiting. no chest pain. on room air. no shortness of breath Hemoglobin is 12.7 and there does not appear to be indication for any blood transfusion at this time, monitor the CBC (2) CAD (coronary artery disease): -Underwent preop cardiac catheterization on October 23 with evidence of mild nonocclusive CAD -Continue aspirin, statin, imdur (3) Hypertension: -Continue labetalol with hold parameters -blood pressure management as above -holding off losartain 100 mg qhs until blood pressure improves more (4) CKD (chronic kidney disease): -CKD documented on OP paperwork (level unspecified). Baseline Cr unknown- monitor with BMP in AM -preop CKD on 10/08/2019 with creatinine 1.53 -creatinine 1.35 with estimated GFR if 50.3 on 10/29/2019, monitor the renal function but there does not appear to be an acute issue at this time in regard to renal function (5) Asthma: -Continue home Qvar, Serevent Diskus inhalers, Singulair HS (6) BPH (benign prostatic hyperplasia): -Continue tamsulosin (7) GERD (gastroesophageal reflux disease): -Continue Protonix (8) History of cataract surgery: -Continue doxycycline daily and Cequa drops for dry eyes (9) Sleep apnea: -CPAP from home to use PCP: Major Hurst) My colleague Dr. Orozco will be the consult medicine hospitalist starting on 10/30/2019 Admission and Anticipated Discharge Date Admission Date: October 28, 2019 Subjective Patient seen and examined in the AM. His blood pressure at 7 AM noted to be low as 95/58 but patient is asymptomatic. no dizziness. no lightheadedness. will give IV fluids as 250 bolus and a hold order is placed on losartan 100 mg qhs for now he is laying on the bed. his back feeling sore but no acute severe back pain. There is JORGE drain to the back with serosanguinous fluid. Cárdenas is in place. He is awaiting to be seen by PT/OT. He has passed gas. No bowel movement yet since the surgery on 10/28/2019. no nausea. no vomiting. no chest pain. on room air. no shortness of breath Review of Systems Review of Systems: All systems reviewed & are unremarkable except as noted in Subjective Physical Exam Constitutional: comfortable Eyes: PERRL, conjunctivae normal, anicteric sclerae EOM intact bilaterally ENMT: external ear and nose normal, oropharynx normal Neck: trachea midline, no thyromegaly normal visual inspection Respiratory: normal respiratory effort, lungs clear to auscultation Cardiovascular: Rate/Rhythm: regular rate Gastrointestinal (Abdomen): normal bowel sounds, soft, nontender, no hepatosplenomegaly Musculoskeletal: Head/Neck/Chest: normocephalic and head atraumatic JORGE drain to the back Neurologic: PERRL, EOMI, accommodation nl, no face palsy, no dysarthria Psychiatric: A+Ox3, euthymic affect Genitourinary: cárdenas Results & Data Results & Data ([facility]) Vital Signs (Past 12 Hours) Vital Signs Temp Pulse Resp BP Pulse Ox 10/29/19 07:10 36.8 C 64 16 95/58 L 93 10/29/19 03:50 36.9 C 64 18 105/58 L 97 10/29/19 00:07 36.6 C 56 L 18 119/72 96
[2019-10-29] MEDS ORDERED: SODIUM CHLORIDE 0.9% 1000ML 250 ML IV ONE (09:22)
--- NOTE | 2019-10-29 13:17 | Orthopedic Progress Note ---
Date of Service October 29, 2019 Assessment & Plan (1) Neurogenic claudication due to lumbar spinal stenosis: This stable continue physical therapy monitor his JORGE output hopefully discharge home in the next few days. Present on Admission?: Yes Admission and Anticipated Discharge Date Admission Date: October 28, 2019 Subjective Back pain controlled leg symptoms improved Physical Exam Physical Exam: Patient is good strength testing was comfortable. Results & Data ([facility]) Vital Signs (Past 12 Hours) Vital Signs Temp Pulse Resp BP Pulse Ox 10/29/19 11:35 96 10/29/19 11:10 37.0 C 68 16 107/58 L 94 10/29/19 09:31 95/51 L 10/29/19 07:10 36.8 C 64 16 95/58 L 93 10/29/19 03:50 36.9 C 64 18 105/58 L 97
[2019-10-29] MEDS ORDERED: LIDOCAINE 2% JELLY 5 ML TUBE EXT PRN (19:34)
[2019-10-29] MEDS: DOCUSATE SODIUM/SENNA 50/8.6MG TAB PO SCH (20:48)
[2019-10-29] MEDS: MONTELUKAST SODIUM 10 MG TABLET PO SCH (20:48)
[2019-10-29] MEDS: MAGNESIUM CHLORIDE 64MG DELAYED REL TAB PO SCH (20:48)
[2019-10-29] MEDS: PANTOprazole 40 MG TAB PO SCH (20:48)
[2019-10-29] MEDS: HYDROmorphone INJ 1 MG/ML SYRINGE IV PRN (23:08)
[2019-10-30] MEDS: HYDROmorphone INJ 1 MG/ML SYRINGE IV PRN (04:01)
[2019-10-30] MEDS: POLYETHYLENE (MIRALAX) 17 GM PACK PO SCH ×3 (05:49→18:10)
[2019-10-30] MEDS: TAMSULOSIN HCL 0.4 MG CAP PO SCH ×2 (07:37→20:51)
[2019-10-30] MEDS: LABETALOL HCL 200 MG TAB PO SCH ×2 (07:37→20:51)
[2019-10-30] MEDS: ISOSORBIDE MONO EXTENDED REL 60 MG TABCR PO SCH (07:38)
[2019-10-30] MEDS: PROBENECID 500 MG TAB PO SCH ×2 (07:38→20:51)
[2019-10-30] MEDS: DOXYCYCLINE HYCLATE 50 MG CAP PO SCH (07:38)
[2019-10-30] MEDS: CEROVITE ADV FORMULA TAB PO SCH (07:39)
[2019-10-30] MEDS: OLODATEROL HCL 2.5MCG/ACTUATION 60 PUFFS/INHALER INH SCH (07:39)
[2019-10-30] MEDS: FLUTICASONE FUROATE 200MCG 14 PUFFS/INHALER INH SCH (07:39)
[2019-10-30] MEDS: ASPIRIN 81 MG ECTAB PO SCH (07:39)
[2019-10-30] MEDS: DEXAMETHASONE SOD PHOSPHATE 8 MG in SYRINGE 0 ML IV SCH (07:46)
[2019-10-30 07:49] LABS: Basophils # (auto) 0.04 K/uL (0-0.2); Basophils % (auto) 0.3 %; Eosinophils # (auto) 0.36 K/uL (0-0.5); Hematocrit (blood only) 38.5 % (42-52); Hemoglobin 12.5 g/dL (14.0-18.0); Immature Granulocytes # (auto) 0.02 K/uL (0.00-0.02); Immature Granulocytes % (auto) 0.2 %; Lymphocytes # (auto) 1.69 K/uL (1.2-3.4); Lymphocytes % (auto) 13.9 %; Mean Corpuscular Hemoglobin 29.7 pg (25-34); Mean Corpuscular Hgb Conc 32.5 g/dL (32-36); Mean Corpuscular Volume 91.4 fL (80-100); Mean Platelet Volume 9.7 fL (7.4-10.4); Monocytes # (auto) 1.77 K/uL (0.11-0.59); Monocytes % (auto) 14.5 %; Neutrophils % (auto) 68.1 %; Platelet Count 252 K/uL (130-400); RDW Coefficient of Variation 14.3 % (11.5-14.5); RDW Standard Deviation 48.5 fL (36.4-46.3); Red Blood Count 4.21 M/uL (4.7-6.1); White Blood Count 12.18 K/uL (4.8-10.8)
[2019-10-30 08:21] LABS: BUN Creatinine Ratio 13.6 (10-20); Calcium 8.5 mg/dl (8.5-10.1); Creatinine Clr Calc Pharmacy 57.2 ml/min; Est GFR (African American) 61.6; Est GFR (Non-African American) 53.1; Potassium 4.2 mmol/L (3.5-5.1)
--- NOTE | 2019-10-30 08:59 | Hospitalist Progress Note ---
Date of Service October 30, 2019 Assessment & Plan (1) S/P spinal surgery: This is a 79-year-old male with PMH of nonobstructive CAD, asthma/COPD, BPH, GERD, HTN, DASIA on CPAP, CKD and other medical problems listed below who is POD#0 s/p lumbar decompression fusion L4-S1 by Dr. Antonio. -POD#2 s/p lumbar decompression fusion L4-S1 by Dr. Antonio EBL: 250 ml, JORGE drain output 110 ml over past 24 hours -pain management per ortho -wound management per ortho -PT/OT as appropriate -DVT prophylaxis per ortho -incentive spirometry -Pre-op Hgb: 14.7. Today Hgb: 12.5 and stable from 12.7 yesterday; post op blood loss anemia (2) Low grade fever: Over night with temp of 37.7C and this morning 37.6C. Had Tylenol with repeat temp of 36.8C. C/O aching sensation to right side of back that he relates to feeling similar to a kidney stone in the past. Pain is non-radiating. No reported hematuria. Reports chronic mild productive cough in the mornings but denies any increased cough. Denies SOB, CP, rhinorrhea, sore throat, rashes, abdominal pain. Incision site without erythema, edema or purulent drainage noted. WBC: 12 -May be secondary to surgery. Will r/o underlying infection -Obtain UA and urine culture to r/o UTI -Obtain CXR to r/o pneumonia -Obtain KUB r/o stone -If recurrent or higher fevers consider blood cultures -CBC in AM (3) Urinary retention: Had Walter for surgery and was removed yesterday. Having urinary retention and required straight cath last night and this morning. He has h/o BPH and is on tamsulosin. No h/o self cath at home -Monitor for further urinary retention and may need to reinsert Walter cath -Continue tamsulosin (4) CAD (coronary artery disease): -Underwent preop cardiac catheterization on October 23 with evidence of mild nonocclusive CAD -No CP or SOB -Continue aspirin, statin, imdur (5) Hypertension: -Continue labetalol with hold parameters -Losartan has been on -holding off losartain 100 mg qhs until blood pressure improves more (6) CKD (chronic kidney disease): -CKD documented on OP paperwork (level unspecified). Baseline Cr unknown- monitor with BMP in AM -preop CKD on 10/08/2019 with creatinine 1.53 -creatinine 1.29 today (7) Asthma: -Continue home Qvar, Serevent Diskus inhalers, Singulair HS (8) BPH (benign prostatic hyperplasia): -Continue tamsulosin (9) GERD (gastroesophageal reflux disease): -Continue Protonix (10) History of cataract surgery: -Continue doxycycline daily and Cequa drops for dry eyes (11) Sleep apnea: -CPAP from home to use HS PCP: Major Hurst) Admission and Anticipated Discharge Date Admission Date: October 28, 2019 Supervising Physician Co-Signing Physician Notes Pt was seen and examined. Agreed with Chantel PARKER exam, assessment and plan. s/p day #2 lumbar decompression and fusion L4-S1 performed by Dr. Antonio. No post- op complication. Hgb stable at 12.5. Pain management as per Ortho. Continue PT/OT. Incentive spirometry. Fall precaution. Walter placed due to urinary retention. Required straight cath last night and this morning. Will get a KUB since complaining of right sided back discomfort. Will check UA. Continue monitor closely. MD Ernesto Subjective Pt seen and examined. Is supine in bed. Reports back feels a little sore after he ambulated yesterday but overall pain moderately controlled. He states last night developed some chills and sweats. Had temp of 37.7 and this morning 37.6 and had Tylenol with repeat temp of 36.8C. Pt reports urinary retention. Needed straight cath last night and this morning. He has h/o BPH and is on tamsulosin, however does not require self cath at home. C/O aching sensation to right side of back that he relates to feeling similar to a kidney stone in the past. Pain is non-radiating. No reported hematuria. Reports chronic mild productive cough in the mornings but denies any increased cough. Denies SOB, CP, rhinorrhea, sore throat, rashes. Passing flatus, no BM yet since surgery. Denies N/V/D, GREEN, dizziness, syncope, vision changes, neck pain, palpitations, abdominal pain, paresthesias, extremity weakness, extremity edema. Review of Systems Review of Systems: All systems reviewed & are unremarkable except as noted in HPI & below Physical Exam Physical Exam: General: no distress, obese Head: normocephalic, atraumatic Eyes: conjunctiva non-injected, anicteric ENT: normal inspection external ears, nose, mucous membranes moist Neck: supple, trachea midline Lungs: clear, no respiratory distress, no wheezing/rhonchi/rales CV: RRR, no murmur, no pretibial edema Abd: normal BS, protuberant, soft, non-tender, no CVA tenderness to palpation Back: Dressing in place is dry, incision site without erythema or edema and no purulent drainage. JORGE drain in place with serosanguineous drainage Ext: no cyanosis, no calf tenderness; pedal pushes and pulls intact bilaterally, distal pulses intact Neuro: A&O x 3, no focal deficits noted, normal affect Skin: warm, dry Results & Data Results & Data ([facility]) Vital Signs (Past 12 Hours) Vital Signs Temp Pulse Pulse Resp BP Pulse Ox 10/30/19 07:47 36.8 C 18 97 10/30/19 07:42 75 126/72 10/30/19 05:51 37.6 C H 10/30/19 04:00 37.4 C 10/29/19 23:10 37.7 C H 97 H 16 131/74 92 10/29/19 22:12 37.2 C Laboratory Results Short CBC 10/30/19 Range/Units 07:29 WBC 12.18 H (4.8-10.8) K/uL Hgb 12.5 L (14.0-18.0) g/dL Hct 38.5 L (42-52) % Plt Count 252 (130-400) K/uL BMP 10/30/19 07:29 Sodium 137 Potassium 4.2 Chloride 104 Carbon Dioxide 28 BUN 18 Creatinine 1.29 Glucose 107 H Calcium 8.5
--- NOTE | 2019-10-30 10:31 | XRay Report ---
XR chest 2V PA/lateral, XR KUB/Abdomen 1 view HISTORY: 79 years-old Male febrile acute fever COMPARISON: Chest radiograph 10/08/2019, CT abdomen and pelvis 11/08/2013 TECHNIQUE: PA and lateral views of the chest with KUB radiograph FINDINGS: CHEST: The cardiomediastinal and hilar silhouettes are within normal limits. No pneumothorax, pleural effusi on, airspace consolidation or overt pulmonary edema. Degenerative changes of the shoulders and spine. KUB: Posterior interbody kirill and screw fusion at L5-S1. There is a catheter noted overlying the lower lum bar spine, distal tip terminating at the level of L4. The catheter appears intact. Cholecystectomy. S cattered small and large bowel air-fluid levels. Mildly distended small bowel measures up to 3.5 cm t ransversely. No definite pneumatosis or pneumoperitoneum. No urolith identified. IMPRESSION: 1. Large and small bowel air-fluid levels with mild gaseous distention of the small bowel is suggesti ve of probable ileus. 2. No pneumatosis or pneumoperitoneum. 3. No acute process of the chest. ACT 112: Negative or not required by law. The above report was generated using voice recognition software. It may contain grammatical, syntax o r spelling errors. Electronically signed by: Antwan Mejia M.D. 10/30/2019 10:29 AM
--- NOTE | 2019-10-30 11:09 | Orthopedic Progress Note ---
Date of Service October 30, 2019 Assessment & Plan (1) Neurogenic claudication due to lumbar spinal stenosis: This time we will continue physical therapy monitor his JORGE output anticipate discharge home in the next few days. Present on Admission?: Yes Admission and Anticipated Discharge Date Admission Date: October 28, 2019 Subjective Back pain controlled leg symptoms improved. Having some struggle with urination. Potentially kidney stone. Physical Exam Physical Exam: On exam he does have good strength testing is comfortable at this time. Results & Data ([facility]) Vital Signs (Past 12 Hours) Vital Signs Temp Pulse Pulse Resp BP Pulse Ox 10/30/19 07:47 36.8 C 18 97 10/30/19 07:42 75 126/72 10/30/19 05:51 37.6 C H 10/30/19 04:00 37.4 C 10/29/19 23:10 37.7 C H 97 H 16 131/74 92
[2019-10-30 14:57] LABS: Appearance Urine Clear (Clear); Bilirubin Urine Negative (Negative); Blood Urine Negative (Negative); Color Urine Yellow; Glucose Urine UA Negative (Negative); Ketones Urine Negative (Negative); Leukocyte Esterase Urine Negative (Negative); Nitrite Urine Negative (Negative); Protein Urine Negative (Negative); Specific Gravity Urine 1.022 (1.000-1.030); Urobilinogen Urine Negative (Negative)
[2019-10-30] MEDS: PANTOprazole 40 MG TAB PO SCH (20:51)
[2019-10-30] MEDS: MAGNESIUM CHLORIDE 64MG DELAYED REL TAB PO SCH (20:51)
[2019-10-30] MEDS: MONTELUKAST SODIUM 10 MG TABLET PO SCH (20:51)
[2019-10-30] MEDS: DOCUSATE SODIUM/SENNA 50/8.6MG TAB PO SCH (20:52)
[2019-10-31 06:01] LABS: Basophils # (auto) 0.02 K/uL (0-0.2); Basophils % (auto) 0.1 %; Eosinophils # (auto) 0.19 K/uL (0-0.5); Eosinophils % (auto) 1.4 %; Hematocrit (blood only) 39.4 % (42-52); Hemoglobin 12.9 g/dL (14.0-18.0); Immature Granulocytes # (auto) 0.04 K/uL (0.00-0.02); Immature Granulocytes % (auto) 0.3 %; Lymphocytes # (auto) 1.37 K/uL (1.2-3.4); Mean Corpuscular Hemoglobin 29.7 pg (25-34); Mean Corpuscular Hgb Conc 32.7 g/dL (32-36); Mean Corpuscular Volume 90.8 fL (80-100); Mean Platelet Volume 9.8 fL (7.4-10.4); Monocytes # (auto) 1.43 K/uL (0.11-0.59); Monocytes % (auto) 10.5 %; Neutrophils # (auto) 10.59 K/uL (1.4-6.5); Neutrophils % (auto) 77.7 %; Platelet Count 260 K/uL (130-400); RDW Standard Deviation 46.7 fL (36.4-46.3); Red Blood Count 4.34 M/uL (4.7-6.1); White Blood Count 13.64 K/uL (4.8-10.8)
[2019-10-31] MEDS: DOXYCYCLINE HYCLATE 50 MG CAP PO SCH (08:11)
[2019-10-31] MEDS: FLUTICASONE FUROATE 200MCG 14 PUFFS/INHALER INH SCH (08:11)
[2019-10-31] MEDS: OLODATEROL HCL 2.5MCG/ACTUATION 60 PUFFS/INHALER INH SCH (08:11)
[2019-10-31] MEDS: ASPIRIN 81 MG ECTAB PO SCH (08:12)
[2019-10-31] MEDS: CEROVITE ADV FORMULA TAB PO SCH (08:12)
[2019-10-31] MEDS: ISOSORBIDE MONO EXTENDED REL 60 MG TABCR PO SCH (08:12)
[2019-10-31] MEDS: TAMSULOSIN HCL 0.4 MG CAP PO SCH (08:12)
[2019-10-31] MEDS: LABETALOL HCL 200 MG TAB PO SCH (08:12)
[2019-10-31] MEDS: DEXAMETHASONE SOD PHOSPHATE 8 MG in SYRINGE 0 ML IV SCH ×2 (08:12→09:26)
[2019-10-31] MEDS: PROBENECID 500 MG TAB PO SCH (08:12)
--- NOTE | 2019-10-31 08:13 | Orthopedic Progress Note ---
Date of Service October 31, 2019 Assessment & Plan (1) Neurogenic claudication due to lumbar spinal stenosis: This time he is ready to go home. We will trial a DC Walter however he may have to be discharged with a Walter in place and follow-up with urology. Present on Admission?: Yes Admission and Anticipated Discharge Date Admission Date: October 28, 2019 Subjective Back pain controlled leg symptoms improved. Physical Exam Physical Exam: On exam is good strength testing is ambulating. Results & Data ([facility]) Vital Signs (Past 12 Hours) Vital Signs Temp Pulse Pulse Resp BP Pulse Ox 10/31/19 06:33 37.1 C 78 20 141/78 H 96 10/30/19 23:00 36.7 C 79 18 145/83 H 98 10/30/19 20:49 91 H 130/75
--- NOTE | 2019-10-31 08:16 | Discharge Summary ---
Date of Service October 31, 2019 Admission HPI Per Admitting Provider This is a 79-year-old male who presents with worsening back and bilateral leg pain. After failing extensive course of nonoperative care is here for surgical invention. Principal Diagnosis Lumbar spinal stenosis with neurogenic claudication Discharge Data Allergies Allergy/AdvReac Type Severity Reaction Status Date / Time diphtheria,pertussis Allergy Severe arm Verified 10/28/19 09:57 (acellular),te swelling [From Adacel(Tdap and redness Adolesn/Adult)(PF)] iodine Allergy Severe Hives Verified 10/28/19 09:57 dissolvable stitches AdvReac Severe does not Uncoded 10/28/19 09:57 disolve Consultations 10/28/19 16:06 Consult Case Management - Discharge Planning Routine Consult Hospitalist Routine Procedures Performed Operation Date: 10/28/19 11:20 Actual Procedures p L4-S1 Decompression and Fusion, Spinal Cord Monitoring, Application of Infuse BMP(Not Applicable) - Ramo Antonio DO Ordered Studies 10/28/19 11:20 FL fluoroscopy <1hr Routine FL lumbar spine 2-3V Routine Hospital Course (1) Neurogenic claudication due to lumbar spinal stenosis: Placement of 1 lumbar decompression fusion tolerated as well as taken to the orthopedic floor postoperative. Postop day 1 is up and ambulating progressed appropriately to postop day #2 on postop day 3 his pain was well controlled and he is subsequently discharged home. Discharge orders instructions from the chart for further review. Total Time Total Time Spent Total Time Spent (In Minutes): 20 minutes Discharge Plan Discharge Items Patient Disposition: Home - Self-Care Reason For Visit: LUMBAR SPINAL STENOSIS W NEUROGENIC CLAUDICATION Discharge Diagnosis: Lumbar spinal stenosis with neurogenic claudication Activity: As commented below Non-emergency contact: Primary Care Provider Call non-emergency contact if: you have any medication questions Follow-up/Referrals: Joel Gonsalves DO [Primary Care Provider] - Diet: Regular Addtl Attending Provider Instructions: ACTIVITY RECOMMENDATIONS: SELF CARE INSTRUCTIONS AFTER THORACIC/LUMBAR FUSIONS 1. You may walk to your tolerance. It is good exercise for your legs and back. Expect some back and intermittent leg aches and pains. 2. You may perform "counter-top" level activities (make a sandwich, yesika with a project, etc.). 3. No bending or lifting of more than 10 pounds or back twisting of any nature (roll like a log when turning in bed). 4. You may ride in a car for 20-30 minutes at a time. No driving until after your first visit with your doctor. 5. Frequent changes of position and restricting sitting to 30 minutes at a time will help limit the amount of back spasms and stiffness you may experience. 6. You may discontinue the use of ambulatory aids (cane, crutches, etc.) once your strength and confidence allow. 7. You may [employer] the shower and let water strike your incision when you arrive home at least once daily. Do not take a tub bath, sit in a hot tub or go into a swimming pool until after your first recheck in the office. SPECIAL CARE INSTRUCTIONS: VERY IMPORTANT TO READ AND REVIEW A. Your surgical incision has been closed with a cosmetic suture under the skin that will dissolve in about 6 weeks. In 14 days, you can use a pair of clean scissors and cut the suture that is left outside of the skin at the ends of your incision. 1. The small skin tapes can be removed 7 days after surgery if they have not fallen off by that point. 2. You may keep the wound open to air as much as possible to promote healing after post-op day number 5 unless told otherwise by your doctor. 3. If you think the wound looks like it is becoming infected (redness or worsening drainage) and/or you are experiencing fever, chill or worsening back pain and muscle spasms, contact the office so that we may ev aluate you as soon as possible. B. Complications are uncommon, but please contact us if you have any signs or symptoms of: 1. wound infection (fever higher than 102.5 degrees F, redness, separation of wound, drainage, or increasing pain from the incision) 2. blood clots in legs (pain, swelling, redness and warmth in legs) 3. urinary tract infection (fever higher than 102.5 degrees F, burning upon urination or increased frequency of urination) 4. nerve problems (inability to walk on your toes or heels, numbness, loss of bowel or bladder control) 5. any other symptoms that concern you C. Please call the office at if you have any concerns or questions about your operation or recovery. D. No smoking! Smoking drastically decreases the chance of a solid fusion. E. Do not take any anti-inflammatory medications (Indocin, Advil, Motrin, A spirin, Naprosyn, etc.) as these may inhibit the chance of a solid fusion. Tylenol is okay to take for pain. MANAGING PAIN AFTER SPINAL SURGERY 1. Narcotic medication is intended for short-term use and will be provided for surgical pain. Surgical pain usually lasts for a period of 4-6 weeks. Narcotic medication includes Percocet, Vicodin, Darvocet, Tylenol #3 or Lortab. 2. Longer-term pain is more appropriately treated with non-narcotic medication such as Tylenol ES. 3. Muscle spasm is not appropriately treated with narcotics. Muscle relaxers such as Soma, Flexeril or Skelaxin can be used along with Tylenol ES. 4. Remember that we all live with some "aches and pains". This is not unusual or uncommon after an injury or as we get older. a. Back pain is expected and may include muscle spasms for 4 to 6 weeks after surgery. The pain should gradually improve. If the pain worsens for no apparent reason, please contact the office. b. Intermittent leg pain may also be experienced and should not be concerned about unless it worsens for no apparent reason. If so, please contact the office. 5. We will provide appropriate medication within the normal guidelines of their prescribed use. We will also be very cautious and aware of potential abuse and extended duration of patients' medication needs. a. Pain medications are for your comfort and to assist with sleep and rest so that the tissue can heal. They are not provided in order to return to normal activity and should not be used through the day. To do so or worsening pain at night can result from ongoing tissue damage and development of tolerance to the prescribed medicine. 6. Please allow 2-3 days to process refills. Prescriptions will not be mailed but must be picked up at the office. FOLLOW UP VISIT: Keep your scheduled follow-up appointment. Any questions, please call the office at . Pending Studies at Discharge: No Stand-Alone Forms: [employer] Smoking Cessation Medications and DC Order Prescriptions: New oxycodone 5 mg tablet 5 mg PO Q6H PRN (Reason: pain, severe) Qty: 20 RF: 0 tramadol 50 mg tablet 50 mg PO Q6H PRN (Reason: pain, moderate) Qty: 20 RF: 0 Continued labetalol 200 mg Tablet 200 mg PO BID RF: 0 albuterol sulfate 2.5 mg /3 mL (0.083 %) Solution For Nebulization 2.5 mg INHALATION Q6H PRN (Reason: sob) RF: 0 isosorbide mononitrate 60 mg Tablet Extended Release 24 Hr 60 mg PO QAM RF: 0 doxycycline monohydrate 50 mg Tablet 50 mg PO DAILY RF: 0 tamsulosin 0.4 mg Capsule 0.4 mg PO BID RF: 0 pantoprazole 40 mg Tablet,Delayed Release (Dr/Ec) 40 mg PO QPM RF: 0 nitroglycerin [Nitrostat] 0.4 mg Tablet, Sublingual 0.4 mg buccal UD PRN (Reason: Chest Pain) RF: 0 montelukast 10 mg Tablet 10 mg PO HS RF: 0 albuterol sulfate 90 mcg/actuation Hfa Aerosol Inhaler 1 inh INHALATION QID PRN (Reason: sob) RF: 0 losartan 100 mg Tablet 100 mg PO HS RF: 0 probenecid 500 mg Tablet 500 mg PO BID RF: 0 potassium gluconate 595 mg (99 mg) Tablet 595 mg PO DAILY RF: 0 Metamucil 3.4 gram/5.4 gram Powder 1 tbsp PO DAILY RF: 0 Cequa 0.09 % Dropperette 1 drp OPHTHALMIC (EYE) Q12H RF: 0 Multivitamin 50 Plus Tablet 1 tab PO DAILY RF: 0 aspirin [Aspirin Low Dose] 81 mg Tablet,Delayed Release (Dr/Ec) 81 mg PO DAILY RF: 0 Serevent Diskus 50 mcg/dose Blister With Device 2 inh INHALATION BID RF: 0 Qvar RediHaler 80 mcg/actuation Hfa Aerosol Breath Activated 4 inh INHALATION Q12H RF: 0 Slow-Mag 71.5 mg Tablet,Delayed Release (Dr/Ec) 143 mg PO HS RF: 0 Discharge Orders: Discharge Order (Routine); Ordered 10/31/19 Ordered By: Ramo Antonio Admission Data Admit Date/Time: 10/28/19 16:40 Attending Provider: Ramo Antonio Admit Provider: Ramo Antonio Primary Care Provider: Joel Gonsalves Other Providers: Issac Loera ; Juany Orozco
[2019-10-31] MEDS ORDERED: POLYETHYLENE (MIRALAX) 17 GM PACK PO SCH (09:00)
--- NOTE | 2019-10-31 13:22 | Hospitalist Progress Note ---
Date of Service October 31, 2019 Assessment & Plan (1) S/P spinal surgery: This is a 79-year-old male with PMH of nonobstructive CAD, asthma/COPD, BPH, GERD, HTN, DASIA on CPAP, CKD and other medical problems listed below who is POD#0 s/p lumbar decompression fusion L4-S1 by Dr. Antonio. -POD#3 s/p lumbar decompression fusion L4-S1 by Dr. Antonio -No post op complication -pain management per ortho -wound management per ortho -PT/OT as appropriate -DVT prophylaxis per ortho -incentive spirometry -Hgb stable at 12.9 -JORGE drain removed today (2) Low grade fever: Over night with temp of 37.7C and this morning 37.6C. Had Tylenol with repeat temp of 36.8C. C/O aching sensation to right side of back that he relates to feeling similar to a kidney stone in the past. Pain is non-radiating. No reported hematuria. Reports chronic mild productive cough in the mornings but denies any increased cough. Denies SOB, CP, rhinorrhea, sore throat, rashes, abdominal pain. Incision site without erythema, edema or purulent drainage noted. WBC: 12 -Due to Post op -UA and urine cx negative for UTI -CXR showed no infiltrate -KUB showed Large and small bowel air-fluid levels with mild gaseous distention of the small bowel is suggestive of probable ileus. -Normal BM - resolved (3) Urinary retention: Had Cárdenas for surgery and was removed yesterday. Having urinary retention and required straight cath last night and this morning. He has h/o BPH and is on tamsulosin. No h/o self cath at home -Monitor for further urinary retention and may need to reinsert Cárdenas cath -Continue tamsulosin - Cárdenas removed for void trial and able to urinate (4) CAD (coronary artery disease): -Underwent preop cardiac catheterization on October 23 with evidence of mild nonocclusive CAD -No CP or SOB -Continue aspirin, statin, imdur (5) Hypertension: -Continue labetalol with hold parameters resumed Losartan (6) CKD (chronic kidney disease): -CKD documented on OP paperwork (level unspecified). Baseline Cr unknown- monitor with BMP in AM -preop CKD on 10/08/2019 with creatinine 1.53 -creatinine 1.29 today (7) Asthma: -Continue home Qvar, Serevent Diskus inhalers, Singulair HS (8) BPH (benign prostatic hyperplasia): -Continue tamsulosin (9) GERD (gastroesophageal reflux disease): -Continue Protonix (10) History of cataract surgery: -Continue doxycycline daily and Cequa drops for dry eyes (11) Sleep apnea: -CPAP from home to use HS PCP: Chasep Aris) Admission and Anticipated Discharge Date Admission Date: October 28, 2019 Subjective Pt was seen and examined Lying in bed with no distress Pt said that he feels much better He said that he was able to urinate after the cárdenas removed He said that he had BM today denies any chest pain, palpitation, dizziness and SOB Physical Exam Physical Exam: General- No acute distress Head- atraumatic Eyes- PERRL, EOMI, ENT- oropharynx clear Neck- supple, no JVD Lungs- clear to auscultation Heart- regular rhythm; no murmur Abdomen- normal bowel sounds, soft, nontender Extremities- no calf tenderness Neuro- alert, oriented x 3; PERRL, EOMI; no facial palsy; no dysarthria Skin- warm & dry Results & Data Results & Data ([facility]) Vital Signs (Past 12 Hours) Vital Signs Temp Pulse Pulse Pulse Resp BP BP 10/31/19 11:38 10/31/19 10:46 37.1 C 75 78 91 H 20 104/57 L 141/78 H 10/31/19 06:33 37.1 C 78 20 141/78 H Pulse Ox 10/31/19 11:38 97 10/31/19 10:46 96 10/31/19 06:33 96
--- NOTE | 2019-11-12 14:28 | Coding Query ---
Your help is needed for correct coding of this account; please clarify if the patients Post-operative Ileus was: ( ) expected out of the surgery (x ) unexpected complication from the surgery ( )other please specify Thank you Viki DENTON
== END 2019-10-31 14:43 | disposition home or self-care (01) | DRG 460 ==
LOC: ASU 09:37 → 3E 16:40

== ENCOUNTER 2021-04-01 05:38 | Inpatient (IN) ==
--- NOTE | 2021-03-04 11:20 | PAT Medication Instructions ---
Medication Instructions Date of Service March 04, 2021 Home Medications albuterol sulfate 2.5 mg INHALATION Q4H PRN albuterol sulfate 90 mcg/actuation aerosol inhaler 1 inh INHALATION QID PRN aspirin 81 mg tablet,delayed release (Aspirin Low Dose) 81 mg PO QAM beclomethasone dipropionate 80 mcg/actuation HFA breath activated aerosol (Qvar RediHaler) 4 inh INHALATION Q12H cyclosporine 0.09 % eye drops in a dropperette (Cequa) 1 drp OPHTHALMIC (EYE) BID isosorbide mononitrate 60 mg tablet,extended release 24 hr 60 mg PO QAM losartan 100 mg tablet (Cozaar) 100 mg PO HS magnesium chloride 71.5 mg (magnesium chloride) tablet,delayed release (Slow-Ma g) 143 mg PO HS montelukast 10 mg tablet 10 mg PO HS yaewcirwmmve-zoqpuofm-zicvyu tablet (Multivitamin 50 Plus) 1 tab PO QAM nitroglycerin 0.4 mg sublingual tablet (Nitrostat) 0.4 mg BUCCAL UD PRN pantoprazole 40 mg tablet,delayed release 40 mg PO QPM potassium gluconate 595 mg (99 mg) tablet 595 mg PO QAM probenecid 500 mg tablet 500 mg PO BID psyllium husk 3.4 gram/5.4 gram oral powder (Metamucil) 1 tbsp PO HS salmeterol 50 mcg/dose blister powder for inhalation (Serevent Diskus) 1 inh INHALATION BID tamsulosin 0.4 mg capsule 0.4 mg PO BID amlodipine 5 mg tablet (Norvasc) 5 mg PO HS fluticasone propionate 50 mcg/actuation nasal spray,suspension 2 spray INTRANASAL HS labetalol 300 mg tablet 300 mg PO BID naproxen sodium 220 mg tablet (Aleve) 220 mg PO BID PRN Continue as directed nitroglycerin 0.4 mg sublingual tablet (Nitrostat) 0.4 mg BUCCAL UD PRN (if needed) ASK your surgeon for instructions naproxen sodium 220 mg tablet (Aleve) 220 mg PO BID PRN DO NOT take the morning of surgery otvmojpodwiu-igvsedld-iziviv tablet (Multivitamin 50 Plus) 1 tab PO QAM potassium gluconate 595 mg (99 mg) tablet 595 mg PO QAM probenecid 500 mg tablet 500 mg PO BID Take morning of surgery With a small sip of water, OTHERWISE NOTHING TO EAT OR DRINK AFTER MIDNIGHT: albuterol sulfate 2.5 mg INHALATION Q4H PRN (if needed) albuterol sulfate 90 mcg/actuation aerosol inhaler 1 inh INHALATION QID PRN (use if needed; please bring with you to hospital day of surgery if possible) aspirin 81 mg tablet,delayed release (Aspirin Low Dose) 81 mg PO QAM beclomethasone dipropionate 80 mcg/actuation HFA breath activated aerosol (Qvar RediHaler) 4 inh INHALATION Q12H cyclosporine 0.09 % eye drops in a dropperette (Cequa) 1 drp OPHTHALMIC (EYE) BID isosorbide mononitrate 60 mg tablet,extended release 24 hr 60 mg PO QAM salmeterol 50 mcg/dose blister powder for inhalation (Serevent Diskus) 1 inh INHALATION BID tamsulosin 0.4 mg capsule 0.4 mg PO BID labetalol 300 mg tablet 300 mg PO BID Take evening before surgery albuterol sulfate 2.5 mg INHALATION Q4H PRN (if needed) albuterol sulfate 90 mcg/actuation aerosol inhaler 1 inh INHALATION QID PRN (if needed) beclomethasone dipropionate 80 mcg/actuation HFA breath activated aerosol (Qvar RediHaler) 4 inh INHALATION Q12H cyclosporine 0.09 % eye drops in a dropperette (Cequa) 1 drp OPHTHALMIC (EYE) BID losartan 100 mg tablet (Cozaar) 100 mg PO HS magnesium chloride 71.5 mg (magnesium chloride) tablet,delayed release (Slow- Mag) 143 mg PO HS montelukast 10 mg tablet 10 mg PO HS pantoprazole 40 mg tablet,delayed release 40 mg PO QPM probenecid 500 mg tablet 500 mg PO BID psyllium husk 3.4 gram/5.4 gram oral powder (Metamucil) 1 tbsp PO HS salmeterol 50 mcg/dose blister powder for inhalation (Serevent Diskus) 1 inh INHALATION BID tamsulosin 0.4 mg capsule 0.4 mg PO BID amlodipine 5 mg tablet (Norvasc) 5 mg PO HS fluticasone propionate 50 mcg/actuation nasal spray,suspension 2 spray INTRANASAL HS labetalol 300 mg tablet 300 mg PO BID Other Notes If you have any questions please call us at [phone] or [phone] or [phone] or [phone]
--- NOTE | 2021-03-08 11:52 | Anesthesiology Consultation ---
Date of Service March 08, 2021 Assessment & Plan (1) Encounter for pre-operative examination: - PCP response to optimization note regarding mild hyperkalemia. - cardiac clearance. - anesthesia record L4-S1 decompression and fusion 10/28/2019: Grade 2 view, MAC#3, ETT#7.5. No issues per anesthesia progress note. - COVID screening: Per assessment on 03/08/2021: Travel screen negative, no known COVID-19 positive contacts or current COVID-19 related symptoms. Patient vaccinated. Surgeon arranging preop COVID testing, scheduled 03/25/2021. Awaiting results. Chart Review Chart Review: Acceptable Risk for Surgery (pending preop cardio clearance and PCP response) and Patient seen in Pre Admission Testing Teaching & Discussion Pre-Anesthesia Teaching/Discussion Notes: Instructed NPO after midnight before surgery, except medications with 15 cc of water. Medication instructions provided according to the PAT guidelines. History Surgery Operation Date: 03/29/21 10:05 Proposed Procedures p L3-L4 Decompression Fusion, L4-S1 Hardware Removal, Spinal Cord Monitoring - Ramo Antonio DO Height/Weight Height: 5 ft 10 in Weight: 102.9 kg Allergies Allergy/AdvReac Type Severity Reaction Status Date / Time diphtheria,pertussis Allergy Severe arm Verified 03/03/21 14:44 (acellular),te swelling [From Adacel(Tdap and redness Adolesn/Adult)(PF)] Iodinated Contrast Media Allergy Severe Hives Verified 03/03/21 14:45 dissolvable stitches AdvReac Severe does not Uncoded 03/03/21 14:44 disolve Medications Home Medications Medication Instructions Recorded Confirmed Last Taken albuterol sulfate 2.5 mg INHALATION Q4H PRN 10/03/19 03/03/21 Unknown albuterol sulfate 90 mcg/actuation 1 inh INHALATION QID PRN 10/03/19 03/03/21 Unknown aerosol inhaler aspirin 81 mg tablet,delayed 81 mg PO QAM 10/03/19 03/03/21 10/27/19 09:00 release (Aspirin Low Dose) beclomethasone dipropionate 80 4 inh INHALATION Q12H 10/03/19 03/03/21 10/28/19 07:30 mcg/actuation HFA breath activated aerosol (Qvar RediHaler) cyclosporine 0.09 % eye drops in a 1 drp OPHTHALMIC (EYE) BID 10/03/19 03/03/21 10/28/19 07:30 dropperette (Cequa) isosorbide mononitrate 60 mg 60 mg PO QAM 10/03/19 03/03/21 10/28/19 07:30 tablet,extended release 24 hr losartan 100 mg tablet (Cozaar) 100 mg PO 10/03/19 03/03/21 10/27/19 21:00 magnesium chloride 71.5 mg 143 mg PO HS 10/03/19 03/03/21 10/27/19 21:00 (magnesium chloride) tablet,delayed release (Slow-Mag) montelukast 10 mg tablet 10 mg PO 10/03/19 03/03/21 10/27/19 21:00 agwazzgncahq-nilwjrch-vceuky 1 tab PO QA 10/03/19 03/03/21 10/27/19 09:00 tablet (Multivitamin 50 Plus) nitroglycerin 0.4 mg sublingual 0.4 mg BUCCAL UD PRN 10/03/19 03/03/21 Unknown tablet (Nitrostat) pantoprazole 40 mg tablet,delayed 40 mg PO QPM 10/03/19 03/03/21 10/27/19 21:00 release potassium gluconate 595 mg (99 mg) 595 mg PO M 10/03/19 03/03/21 10/27/19 21:00 tablet probenecid 500 mg tablet 500 mg PO BID 10/03/19 03/03/21 10/27/19 21:00 psyllium husk 3.4 gram/5.4 gram 1 tbsp PO 10/03/19 03/03/21 10/27/19 21:00 oral powder (Metamucil) salmeterol 50 mcg/dose blister 1 inh INHALATION BID 10/03/19 03/03/21 10/28/19 07:30 powder for inhalation (Serevent Diskus) tamsulosin 0.4 mg capsule 0.4 mg PO BID 10/03/19 03/03/21 10/27/19 21:00 amlodipine 5 mg tablet (Norvasc) 5 mg PO 03/03/21 03/03/21 Unknown fluticasone propionate 50 2 spray INTRANASAL 03/03/21 03/03/21 Unknown mcg/actuation nasal spray,suspension labetalol 300 mg tablet 300 mg PO BID 03/03/21 03/03/21 Unknown naproxen sodium 220 mg tablet 220 mg PO BID PRN 03/03/21 03/03/21 Unknown (Lanihemal) Past Medical History Medical History (Updated 03/08/21 @ 12:21 by Kaitlin Mckeon PA-C) Arteriolosclerosis Asthma well controlled with daily use of his inhalers BPH (benign prostatic hyperplasia) CAD (coronary artery disease) cath report "no more than mild nonocclusive coronary disease." Chronic back pain CKD (chronic kidney disease) pt unaware Cyst of left kidney monitoring. (found on MRI). no problems noted. Degenerative disc disease GERD (gastroesophageal reflux disease) Gout Hiatal hernia Hx of gynecomastia right breast r/t medication. no problems currently. Hypertension increased recently, outpatient ambulatory monitoring by cardiology Idiopathic polyneuropathy Irregular heartbeat Dr. Ramachandran. unsure of name of irregular heartbeat Liver cyst "cluster of blood vessels" monitoring Osteoarthritis Sleep apnea CPAP (no machine d/t recall) Spinal stenosis Patient denies h/o stroke, seizures, heart attack, heart failure, DM, blood clots or blood transfusions. Exercise / Class Metabolic Activity II 4-5 Yardwork/Stairs/Walk up hill (shortness of breath with 1 FOS, denies chest discomfort; states cardio is aware of recently increased dyspnea on exertion and updated echo was completed) Past Family History Family History Other Brain tumor Heart disease No family history of adverse response to anesthesia Past Surgical History Surgical History H/O knee surgery right open ligament repair History of cardiac cath x3 (most recent in the early 1989's, prior to the 10/24/19 cath). no stents. no [place]. History of cataract surgery bilateral History of cholecystectomy History of colonoscopy S/P breast biopsy right (benign) S/P inguinal hernia repair left x2 S/P lumbar spinal fusion L4-S1 decompression and fusion 10/28/2019: Grade 2 view, MAC#3, ETT#7.5. No issues per anesthesia progress note. Past Anesthesia History No Hx of Anesthesia Complications and No Family Hx of Anesthesia Complications History of PONV No Hx of PONV and No Hx of Motion Sickness Social History Smoking Status: Former smoker tobacco type: cigarettes Do You Dip or Chew Tobacco: No Smoking End Date: 1978 Hx Alcohol Use: Yes Alcohol type: beer, wine and hard liquor alcohol intake frequency: holidays/special occasions only Hx Substance Use: No substance use type: does not use Review of Systems Chronic, rare, remote palpitations, follows with cardiology, denies change or worsening. Daily morning, isolated productive cough due to asthma per pt and occasionally after eating. Usually clear, occasionally yellow tinged. Denies blood tinged. Occasional reflux, denies change or worsening. Patient denies chest pain, shortness of breath, dizziness, lightheadedness, fever, chills, or wheezing. Physical Exam Vital Signs Vitals BP 121/68 P 66 TEMP 98.0 SP02 95% on RA RESP 17 Physical Mildly limited cervical extension ROM without pain Full TMJ range of motion TMD 3.5 finger breaths Mallampati Score 2 Dentition: intact, 4 remaining, denies chipped or loose teeth Lungs: normal respiratory effort. Clear throughout to auscultation, no adventitious breath sounds Cardiac: regular rate and rhythm, no murmurs noted Carotid arteries: negative bruit bilat Extremities: no distal extremity edema Lab Results Anesthesia Preop Results Results Anesthesia Widget: WBC 8.51 K/uL (4.8-10.8) 03/08/21 Hgb 15.4 g/dL (14.0-18.0) 03/08/21 Hct 47.4 % (42-52) 03/08/21 Plt 344 K/uL (130-400) 03/08/21 Na 138 mmol/L (136-145) 03/08/21 K 5.2 mmol/L (3.5-5.1) H 03/08/21 Cl 106 mmol/L (98-107) 03/08/21 CO2 28 mmol/L (21-32) 03/08/21 BUN 24 mg/dl (7-18) H 03/08/21 Creat 1.37 mg/dl (0.6-1.4) 03/08/21 Glucose Level 97 mg/dl (70-99) 03/08/21 PT 10.1 Seconds (9.0-12.0) 03/08/21 PTT 28.7 Seconds (21.0-31.0) 03/08/21 INR 1.0 (0.9-1.1) 03/08/21 Urine Color Yellow 03/08/21 Urine Appearance Clear (Clear) 03/08/21 Urine pH 5.0 (4.5-7.5) 03/08/21 Urine Specific [place] 1.017 (1.000-1.030) 03/08/21 Urine Protein Negative (Negative) 03/08/21 Urine Glucose (UA) Negative (Negative) 03/08/21 Urine Ketones Negative (Negative) 03/08/21 Urine Blood Negative (Negative) 03/08/21 Urine Nitrite Negative (Negative) 03/08/21 Urine Bilirubin Negative (Negative) 03/08/21 Urine Urobilinogen Negative (Negative) 03/08/21 Urine Leukocyte Esterase Negative (Negative) 03/08/21 Blood Type A Negative 03/08/21 Antibody Screen NEGATIVE 03/08/21 Testing Electrocardiogram Date: 03/08/21 Normal sinus rhythm, rate 65 bpm. Left axis deviation. Moderate voltage criteria for LVH, may be normal variant. Chest X-Ray Date: 03/08/21 Mild chronic unchanged interstitial coarsening. No acute process. Echocardiogram Date: 01/11/21 Normal ejection fraction. Grade I diastolic dysfunction. Normal right ventricular size with normal. Left atrium is mildly dilated. Normal right atrium. Mild to moderate aortic regurgitation. Mild mitral regurgitation. EF 60%. Stress Test Date: 11/09/16 Pharmacologic stress test Mild diaphragmatic attenuation No rest or stress defects to suggest ischemia or infarction Low risk study Cardiac Catheterization Date: 10/24/19 Left main: luminal irregularities LAD: diffuse mild disease Cx: 30-40% narrowing proximal segment RCA: mild luminal irregularities Conclusion: No more than mild nonocclusive coronary disease. Recommendations: Guideline directed medical therapy for secondary prevention of coronary disease to include; low dose aspirin, high intensity statin therapy, beta-luis daniel, plus or minus LEOLA inhibitor/ARB
[2021-04-01] MEDS ORDERED: CeleBREX 200 MG CAP PO SCH (06:00)
[2021-04-01] MEDS ORDERED: ACETAMINOPHEN 500 MG TAB PO SCH (06:00)
[2021-04-01] MEDS ORDERED: ceFAZolin 2000MG 2,000 MG/15 ML SYR IV SCH (06:00)
[2021-04-01] MEDS ORDERED: LR 15ML/HR IV SCH (06:00)
[2021-04-01] MEDS ORDERED: GABAPENTIN 300 MG CAP PO SCH (06:00)
[2021-04-01] MEDS ORDERED: PROPOFOL IV EMULSION 10 MG/ML 20 ML VIAL IV ONE (06:50)
[2021-04-01] MEDS ORDERED: LIDOCAINE 2% 2 ML VIAL/AMP(20MG/ML) INFIL ONE (06:50)
[2021-04-01] MEDS ORDERED: fentaNYL citrate 100 MCG/2 ML VIAL ONE (06:50)
[2021-04-01] MEDS ORDERED: ROCURONIUM BROMIDE 10 MG/ML 5 ML VIAL IV ONE ×2 (06:50→10:02)
[2021-04-01] MEDS ORDERED: NEOSTIGMINE METHYLSULFATE 1 MG/ML 10ML VIAL ONE (06:53)
[2021-04-01] MEDS ORDERED: GLYCOPYRROLATE 0.2 MG/ML VIAL ONE (06:53)
[2021-04-01] MEDS ORDERED: MIDAZOLAM HCL 1 MG/ML 2ML VIAL ONE (06:53)
[2021-04-01] MEDS ORDERED: BUPIVACAINE/EPINEPHRINE 0.25% 1:200,000 30 ML VIAL ONE (07:06)
--- NOTE | 2021-04-01 07:14 | History & Physical Bridge Note ---
Date of Service April 01, 2021 History & Physical Bridge Note I have examined the patient, reviewed the History & Physical and in the interval since the performance of the History & Physical I have noted the following changes of clinical significance: no changes noted
--- NOTE | 2021-04-01 07:15 | History & Physical Report ---
Date of Service April 01, 2021 Assessment & Plan (1) Neurogenic claudication due to lumbar spinal stenosis: Plan: L3-L4 decompression fusion, L4-S1 hardware removal History of Present Illness Chief Complaint: Back and leg pain Primary Care Provider: Janeen Moreno This is a 81-year-old male presents with chronic persistent back and leg pain after failing course of nonoperative care is here for surgical invention. Allergies Allergy/AdvReac Type Severity Reaction Status Date / Time diphtheria,pertussis Allergy Severe arm Verified 04/01/21 06:00 (acellular),te swelling [From Adacel(Tdap and redness Adolesn/Adult)(PF)] Iodinated Contrast Media Allergy Severe Hives Verified 04/01/21 06:00 dissolvable stitches AdvReac Severe does not Uncoded 04/01/21 06:00 disolve Home Medications Medication Instructions Recorded Confirmed Type albuterol sulfate 2.5 mg INHALATION Q4H PRN 10/03/19 04/01/21 History albuterol sulfate 90 mcg/actuation 1 inh INHALATION QID PRN 10/03/19 04/01/21 History aerosol inhaler aspirin 81 mg tablet,delayed 81 mg PO QAM 10/03/19 04/01/21 History release (Aspirin Low Dose) beclomethasone dipropionate 80 4 inh INHALATION Q12H 10/03/19 04/01/21 History mcg/actuation HFA breath activated aerosol (Qvar RediHaler) cyclosporine 0.09 % eye drops in a 1 drp OPHTHALMIC (EYE) BID 10/03/19 04/01/21 History dropperette (Cequa) isosorbide mononitrate 60 mg 60 mg PO QAM 10/03/19 04/01/21 History tablet,extended release 24 hr losartan 100 mg tablet (Cozaar) 100 mg PO HS 10/03/19 04/01/21 History magnesium chloride 71.5 mg 143 mg PO HS 10/03/19 04/01/21 History (magnesium chloride) tablet,delayed release (Slow-Mag) montelukast 10 mg tablet 10 mg PO HS 10/03/19 04/01/21 History zmaikclujmlh-rwvftasl-afdyia 1 tab PO QAM 10/03/19 04/01/21 History tablet (Multivitamin 50 Plus) nitroglycerin 0.4 mg sublingual 0.4 mg BUCCAL UD PRN 10/03/19 04/01/21 History tablet (Nitrostat) pantoprazole 40 mg tablet,delayed 40 mg PO QPM 10/03/19 04/01/21 History release potassium gluconate 595 mg (99 mg) 595 mg PO QAM 10/03/19 04/01/21 History tablet probenecid 500 mg tablet 500 mg PO BID 10/03/19 04/01/21 History psyllium husk 3.4 gram/5.4 gram 1 tbsp PO HS 10/03/19 04/01/21 History oral powder (Metamucil) salmeterol 50 mcg/dose blister 1 inh INHALATION BID 10/03/19 04/01/21 History powder for inhalation (Serevent Diskus) tamsulosin 0.4 mg capsule 0.4 mg PO BID 10/03/19 04/01/21 History amlodipine 5 mg tablet (Norvasc) 5 mg PO HS 03/03/21 04/01/21 History fluticasone propionate 50 2 spray INTRANASAL HS 03/03/21 04/01/21 History mcg/actuation nasal spray,suspension labetalol 300 mg tablet 400 mg PO BID 03/03/21 04/01/21 History naproxen sodium 220 mg tablet 220 mg PO BID PRN 03/03/21 04/01/21 History (Aleve) Past Med/Surg History Medical History Arteriolosclerosis Asthma well controlled with daily use of his inhalers BPH (benign prostatic hyperplasia) CAD (coronary artery disease) cath report "no more than mild nonocclusive coronary disease." Chronic back pain CKD (chronic kidney disease) pt unaware Cyst of left kidney monitoring. (found on MRI). no problems noted. Degenerative disc disease GERD (gastroesophageal reflux disease) Gout Hiatal hernia Hx of gynecomastia right breast r/t medication. no problems currently. Hypertension increased recently, outpatient ambulatory monitoring by cardiology Idiopathic polyneuropathy Irregular heartbeat Dr. Ramachandran. unsure of name of irregular heartbeat Liver cyst "cluster of blood vessels" monitoring Osteoarthritis Sleep apnea CPAP (no machine d/t recall) Spinal stenosis Surgical History H/O knee surgery right open ligament repair History of cardiac cath x3 (most recent in the early 1989's, prior to the 10/24/19 cath). no stents. no [place]. History of cataract surgery bilateral History of cholecystectomy History of colonoscopy S/P breast biopsy right (benign) S/P inguinal hernia repair left x2 S/P lumbar spinal fusion L4-S1 decompression and fusion 10/28/2019: Grade 2 view, MAC#3, ETT#7.5. No issues per anesthesia progress note. Family History Other Brain tumor Heart disease No family history of adverse response to anesthesia Social History Smoking Status: Former smoker Smoking End Date: 1978; Second Hand Exposure: No; Do You Dip or Chew Tobacco: No; Tobacco Cessation Education Requested by Patient: No Hx Alcohol Use: Yes Alcohol type: beer, wine and hard liquor Alcohol Intake Frequency: Monthly or Less Hx Substance Use: No Preferred Language: Yemeni Communication Ability: Effective Marketing Clerk Required: No Beliefs That Will Affect Care: None Current Living Situation: Alone Other Information That Helps Us Care for You: No Feels Safe at Home: Yes Safety Concerns: Feels Safe At This Time Assistive Devices: Walker Physical Exam Physical Exam: Patient alert and oriented Heart regular rhythm Lungs clear Results & Data ([facility]) Vital Signs (Past 12 Hours) Vital Signs Temp Pulse Resp BP Pulse Ox 04/01/21 06:19 36.4 C L 68 18 133/77 98
[2021-04-01] MEDS ORDERED: NALOXONE HCL 0.4 MG/1 ML VIAL/CARP IV PRN ×2 (07:31→13:11)
[2021-04-01] MEDS ORDERED: HYDROmorphone INJ 1 MG/ML SYRINGE IV PRN ×2 (07:31→13:11)
[2021-04-01] MEDS ORDERED: FLUMAZENIL 0.1 MG/1 ML 10 ML VIAL IV PRN (07:31)
[2021-04-01] MEDS ORDERED: LABETALOL HCL IV 5 MG/ML 20ML IV PRN (07:31)
[2021-04-01] MEDS ORDERED: fentaNYL citrate 100 MCG/2 ML VIAL IV PRN (07:31)
[2021-04-01] MEDS ORDERED: ePHEDrine sulfate 50 MG/ML AMP IV PRN (07:31)
[2021-04-01] MEDS ORDERED: ATROPINE SULFATE 0.1 MG/ML 10ML SYR IV PRN (07:31)
[2021-04-01] MEDS ORDERED: PROMETHAZINE HCL 12.5 MG in SODIUM CHLORIDE 0.9% 50 ML IV PRN ×2 (07:31→13:11)
[2021-04-01] MEDS ORDERED: ONDANSETRON INJ 2 MG/ML 2 ML VIAL IV PRN ×2 (07:31→13:11)
[2021-04-01] MEDS ORDERED: HYDROmorphone INJ 2 MG/ML SYR/VIAL ONE (08:34)
[2021-04-01] MEDS ORDERED: PHENYLEPHRINE HCL 10 MG/ML VIAL ONE ×2 (08:34→09:24)
[2021-04-01] MEDS ORDERED: PHENYLEPHRINE 100MCG/ML 5ML SYR ONE (08:55)
[2021-04-01] MEDS ORDERED: ePHEDrine sulfate 50 MG/ML SYR ONE (08:55)
[2021-04-01] MEDS ORDERED: ALBUMIN HUMAN 5% 12.5 GM/250 ML VIAL IV ONE (09:13)
[2021-04-01] MEDS ORDERED: FLOSEAL HEMOSTATIC MATRIX 10ML TOP ONE (09:44)
--- NOTE | 2021-04-01 09:54 | Operative Report ---
Post Operative Report Pre & Post Diagnosis Operation Date: 04/01/21 07:15 Pre-Op Diagnosis: Spinal Stenosis, Lumbar Region with Neurogenic claudication Post-Op Diagnosis: Spinal Stenosis, Lumbar Region with Neurogenic claudication I identified the patient and participated in the time-out.: Yes Procedure Operation Date: 04/01/21 07:15 Actual Procedures #1 removal of instrumentation L4-5 L5-S1. #2 exploration of fusion L4-5 L5-S1. #3 lumbar decompression with bilateral medial facetectomies and foraminotomies L2-L3 L3-L4. #4 posterior spinal fusion L3-L4. #5 placement of posterior instrumentation L3-S1. #6 interbody fusion L3-L4. #7 placement of peek cage 11 x 26 mm at L3-L4. #8 placement locally harvested morselized autograft in the posterior gutters. #9 placement infuse collagen sponge and master graft in the posterior lateral gutters and I factor interbody space. Surgeon Ramo Antonio, DO Gymnastics Coach Or Instructor Rigoberto Stauffer Estimated Blood Loss 500 Findings See Below The patient is 5 foot 10 inches tall weighing over 104 kg with a BMI in excess of 33. The patient's body habitus did contribute to significant technical difficulty requiring her deepest retractors longus instruments in order to perform his procedure. This added at least 50% increase to the operative time. Specimens None Indications This is a 81-year-old male who presents with the above-mentioned diagnosis after failing extensive course nonoperative care is here for the above-mentioned procedure. Description of Procedure Patient was met with identified informed consent obtained. Patient was then taken to the operative suite underwent ablation placed in a prone position the Powell table top Srinivas frame. All bony prominences well-padded eyes inspected to ensure no external pressure placed upon the. This point the lumbar spine was prepped and draped in normal sterile fashion. Sharp dissection with the assistance of Bovie cautery was performed down to and exposing the lamina transverse processes of L3 and instrumentation at L4-L5 and sacral ala bilaterally. Then proceeded move the hardware bilaterally explore the fusion mass noting it to be intact. Then performed a complete laminectomy of L3 partial laminectomy of L5 to including bilateral medial facetectomies and foraminotomies addressing severe spinal stenosis. Pedicle screws then placed in L3-L4 and S1 levels bilaterally with assistance of fluoroscopy and the properly sized kirill placed. Bilateral transforaminal approach on the right a complete discectomy of L3-L4 was performed endplates curetted to subcortical bone and bone and 11 x 26 mm peek cage filled with I factor tapped in position. The rods were then locked into final position bilaterally. The transverse processes of L3 and L4 burred to subcortical bleeding bone. Infuse collagen sponge master graft local autograft was placed in the posterior gutters. 15 round JORGE drain inserted. The incision was then closed with 1 Vicryl in the fascia 2-0 Vicryl subcutaneously and 4 Monocryl for final skin closure. Steri-Strip sterile dressings placed. Patient waken taken to PACU stable condition. Please note spinal cord monitoring was utilized at the procedure no changes noted. Lastly Rigoberto Stauffer was present at the entire surgeon while the patient positioning complex portions of the surgery and final skin closure. I attest to the content of the Intraoperative Record and any orders documented therein. Any exceptions are noted below.
--- NOTE | 2021-04-01 10:15 | Fluoroscopy Report ---
FL lumbar spine 2-3V CLINICAL HISTORY: L3-L4 D/F, L4-S1 HARDWARE REMOVAL COMPARISON STUDY: 10/28/2019 FLUOROSCOPY TIME: 13 seconds. FLUOROSCOPIC IMAGES: 2 FINDINGS: Compared to previous examination, interpedicular screw and kirill fixation is now seen from L3 through S1 with a disc spacer at the L3-4 disc space level. There is also evidence for laminectomies at L3, L4 and L5. IMPRESSION: Status post revision of spinal internal fixation ACT 112: Negative or not required by law. Electronically signed by: Luis Daniel Powers M.D. 04/01/2021 10:14 AM
[2021-04-01] MEDS ORDERED: SUCCINYLCHOLINE 100MG/5ML SYR IV ONE (10:20)
[2021-04-01 10:55] LABS: Hematocrit (blood only) 37.4 % (42-52); Hemoglobin 12.1 g/dL (14.0-18.0)
[2021-04-01] MEDS ORDERED: oxyCODONE HCL IR 5 MG TAB (IMMEDIATE RELEASE) PO PRN (13:11)
[2021-04-01] MEDS ORDERED: NITROGLYCERIN SL 0.4 MG/TAB TAB SL PRN (13:11)
[2021-04-01] MEDS ORDERED: METOCLOPRAMIDE HCL INJ 5 MG/ML 2 ML VIAL IV PRN (13:11)
[2021-04-01] MEDS ORDERED: traMADol HCL 50 MG TABLET PO PRN (13:11)
[2021-04-01] MEDS ORDERED: HYDROmorphone INJ 0.5 MG/0.5 ML SYR IV PRN (13:11)
[2021-04-01] MEDS ORDERED: diphenhydrAMINE Capsule 25 MG CAP PO PRN (13:11)
[2021-04-01] MEDS ORDERED: DO NOT ADMINISTER PNEUMOCOCCAL VACCINE PRN (13:11)
[2021-04-01] MEDS ORDERED: ONDANSETRON 4 MG OD TAB PO PRN (13:11)
[2021-04-01] MEDS ORDERED: LORazepam 0.5 MG TAB PO PRN (13:11)
[2021-04-01] MEDS ORDERED: ALBUTEROL 0.083% NEBU SOLN 3 ML VIAL INH PRN (13:11)
[2021-04-01] MEDS ORDERED: bisacodyL 10 MG SUPP PR PRN (13:11)
[2021-04-01] MEDS ORDERED: ALBUTEROL HFA 8 GM INHALER INH PRN (13:11)
[2021-04-01] MEDS ORDERED: ACETAMINOPHEN 500 MG TAB PO PRN (13:11)
[2021-04-01] MEDS ORDERED: hydrOXYzine HCl 25 MG TAB PO PRN (13:11)
[2021-04-01] MEDS ORDERED: FAMOTIDINE 20 MG TAB PO PRN (13:11)
[2021-04-01] MEDS ORDERED: DO NOT ADMINISTER FLU VACCINE PRN (13:11)
[2021-04-01] MEDS ORDERED: SOD PHOSPHATE/SOD BIPHOSPHATE ENEMA 132 ML BTL PR PRN (13:11)
[2021-04-01] MEDS ORDERED: LORazepam 0.5 MG/1 ML VIAL IV PRN (13:11)
[2021-04-01] MEDS ORDERED: ALUMINUM/MAGNESIUM SUSP 30 ML UDC PO PRN (13:11)
[2021-04-01] MEDS ORDERED: MAGNESIUM HYDROXIDE SUSP 30 ML UDC PO PRN (13:11)
[2021-04-01] MEDS ORDERED: ACETAMINOPHEN 1,000 MG/100 ML VIAL IV PRN (13:11)
[2021-04-01] MEDS: SODIUM CHLORIDE 0.9% 1000ML 1,000 ML IV SCH ×2 (13:20→20:32)
--- NOTE | 2021-04-01 13:22 | Anesthesiology Progress Note ---
Date of Service April 01, 2021 Anesthesia Post Procedure Vital Signs Vital Signs: Temp Pulse Pulse Resp BP Pulse Ox 04/01/21 13:00 36.9 C 64 14 124/74 97 04/01/21 12:30 58 L 13 122/71 97 04/01/21 12:00 54 L 12 111/71 95 04/01/21 11:30 54 L 14 108/61 97 04/01/21 11:20 54 L 12 105/64 95 04/01/21 11:10 67 12 120/73 97 04/01/21 11:00 67 16 109/69 96 04/01/21 10:50 56 L 13 100/61 95 04/01/21 10:40 61 16 104/61 95 04/01/21 10:30 60 15 103/60 96 04/01/21 10:20 71 14 107/64 97 04/01/21 10:12 36.4 C L 72 16 124/73 98 04/01/21 06:19 36.4 C L 68 18 133/77 98 Pain Intensity Lower Back: Pain Intensity: 3 Transfer of Care Handoff Completed per policy Notes Mental Status: alert / awake / arousable Patient Amnestic to Procedure: Yes Nausea / Vomiting: adequately controlled Pain: adequately controlled Airway Patency, RR, SpO2: stable & adequate BP & HR: stable & adequate Hydration State: stable & adequate Anesthetic Complications: no major complications apparent
[2021-04-01] MEDS: ceFAZolin 2000MG 2,000 MG/15 ML SYR IV SCH ×2 (16:40→23:51)
--- NOTE | 2021-04-01 16:55 | Hospitalist Consultation ---
Date of Consultation April 01, 2021 Assessment & Plan (1) Neurogenic claudication due to lumbar spinal stenosis: (2) S/P spinal surgery: s/p lumbar surgery by Dr. Antonio EBL 500cc POD #0 -pain/wound management per Ortho -VTE prophylaxis per Ortho, encourage early ambulation -incentive spirometry encouraged -CBC, BMP in am -PT/OT and activity restrictions per Ortho (3) Sleep apnea: has been without CPAP 2/2 recent recall on his machine. Declines hospital CPAP. (4) Gout: Cont probenecid per home regimen (5) Hypertension: chronic, controlled. Cont current therapy (6) Asthma: chronic, cont current inhaler therapy. (7) BPH (benign prostatic hyperplasia): chronic, stable. Cont flomax per home regimen. (8) DVT prophylaxis: SCDs Full Code Dispo-to home pending clearance by orthopedics. Amparo Bermudez DO [facility] Hospitalist History of Present Illness Reason for Consultation: post op med managment Attending Physician: Ramo Antonio DO History of Present Illness 81-year-old man with chronic persistent back and leg pain presents for back surgery after failing a course of nonoperative care. He is status post lumbar spinal surgery by Dr. Antonio on 04/01/2021. He reports feeling sore but his pain is under control. He denies any nausea, chest pain, shortness of breath or other issues at this time. He specifically reports feeling much better with respect to his numbness and pain in his feet bilaterally and is already pleased with the surgical result. I reviewed his medication list in detail with him and performed reconciliation. Allergies Allergy/AdvReac Type Severity Reaction Status Date / Time diphtheria,pertussis Allergy Severe arm Verified 04/01/21 06:00 (acellular),te swelling [From Adacel(Tdap and redness Adolesn/Adult)(PF)] Iodinated Contrast Media Allergy Severe Hives Verified 04/01/21 06:00 dissolvable stitches AdvReac Severe does not Uncoded 04/01/21 06:00 disolve Home Medications Medication Instructions Recorded Confirmed Type albuterol sulfate 2.5 mg INHALATION Q4H PRN 10/03/19 04/01/21 History albuterol sulfate 90 mcg/actuation 1 inh INHALATION QID PRN 10/03/19 04/01/21 History aerosol inhaler aspirin 81 mg tablet,delayed 81 mg PO QAM 10/03/19 04/01/21 History release (Aspirin Low Dose) beclomethasone dipropionate 80 4 inh INHALATION Q12H 10/03/19 04/01/21 History mcg/actuation HFA breath activated aerosol (Qvar RediHaler) isosorbide mononitrate 60 mg 60 mg PO QAM 10/03/19 04/01/21 History tablet,extended release 24 hr losartan 100 mg tablet (Cozaar) 100 mg PO HS 10/03/19 04/01/21 History magnesium chloride 71.5 mg 143 mg PO HS 10/03/19 04/01/21 History (magnesium chloride) tablet,delayed release (Slow-Mag) montelukast 10 mg tablet 10 mg PO HS 10/03/19 04/01/21 History [id number] 1 tab PO QAM 10/03/19 04/01/21 History tablet (Multivitamin 50 Plus) nitroglycerin 0.4 mg sublingual 0.4 mg BUCCAL UD PRN 10/03/19 04/01/21 History tablet (Nitrostat) pantoprazole 40 mg tablet,delayed 40 mg PO QPM 10/03/19 04/01/21 History release probenecid 500 mg tablet 500 mg PO BID 10/03/19 04/01/21 History psyllium husk 3.4 gram/5.4 gram 1 tbsp PO HS 10/03/19 04/01/21 History oral powder (Metamucil) salmeterol 50 mcg/dose blister 1 inh INHALATION BID 10/03/19 04/01/21 History powder for inhalation (Serevent Diskus) tamsulosin 0.4 mg capsule 0.4 mg PO BID 10/03/19 04/01/21 History amlodipine 5 mg tablet (Norvasc) 5 mg PO HS 03/03/21 04/01/21 History fluticasone propionate 50 2 spray INTRANASAL BID 03/03/21 04/01/21 History mcg/actuation nasal spray,suspension labetalol 300 mg tablet 400 mg PO BID 03/03/21 04/01/21 History naproxen sodium 220 mg tablet 220 mg PO BID PRN 03/03/21 04/01/21 History (Aleve) Patient History Medical History Arteriolosclerosis Asthma well controlled with daily use of his inhalers BPH (benign prostatic hyperplasia) CAD (coronary artery disease) cath report "no more than mild nonocclusive coronary disease." Chronic back pain CKD (chronic kidney disease) pt unaware Cyst of left kidney monitoring. (found on MRI). no problems noted. Degenerative disc disease GERD (gastroesophageal reflux disease) Gout Hiatal hernia Hx of gynecomastia right breast r/t medication. no problems currently. Hypertension increased recently, outpatient ambulatory monitoring by cardiology Idiopathic polyneuropathy Irregular heartbeat Dr. Ramachandran. unsure of name of irregular heartbeat Liver cyst "cluster of blood vessels" monitoring Osteoarthritis Sleep apnea CPAP (no machine d/t recall) Spinal stenosis Surgical History H/O knee surgery right open ligament repair History of cardiac cath x3 (most recent in the early 1989's, prior to the 10/24/19 cath). no stents. no ND. History of cataract surgery bilateral History of cholecystectomy History of colonoscopy S/P breast biopsy right (benign) S/P inguinal hernia repair left x2 S/P lumbar spinal fusion L4-S1 decompression and fusion 10/28/2019: Grade 2 view, MAC#3, ETT#7.5. No issues per anesthesia progress note. Family History Other Brain tumor Heart disease No family history of adverse response to anesthesia Social History Smoking Status: Former smoker Smoking End Date: 1978; Second Hand Exposure: No; Do You Dip or Chew Tobacco: No; Tobacco Cessation Education Requested by Patient: No Hx Alcohol Use: Yes Alcohol type: beer, wine and hard liquor Alcohol Intake Frequency: Monthly or Less Hx Substance Use: No Preferred Language: Jamaican Communication Ability: Effective Orthotic/Prosthetic Clinician Required: No Beliefs That Will Affect Care: None Current Living Situation: Alone Other Information That Helps Us Care for You: No Feels Safe at Home: Yes Safety Concerns: Feels Safe At This Time Assistive Devices: Walker Review of Systems Review of Systems: All systems are reviewed and negative except as indicated above. Physical Exam Physical Exam: CONSTITUTIONAL: WNWD, vitals as above, generally well- appearing, NAD EYES: normal conjunctivae, no scleral icterus ENT: external ear and nose normal, oropharynx clear, no TM abnormality, no maxillary or ethmoid sinus tenderness NECK: trachea midline RESPIRATORY: clear to auscultation bilaterally, no crackles, rales or wheezes, normal respiratory effort CARDIOVASCULAR: regular rate and rhythm, S1 and 2 heard without murmurs, gallops or rubs, no JVD, no peripheral edema GASTROINTESTINAL: soft, nontender, ND, no guarding MUSCULOSKELETAL: strength 5/5 throughout, head is normocephalic and atraumatic, neck supple, normal palpation of chest wall without tenderness, lower extremities are warm and well-perfused. SKIN: warm and dry NEUROLOGIC: CN 2-12 grossly intact, no sensory deficit, normal cognition, normal speech, no tremor, no gross focal deficits. PSYCHIATRIC: alert cooperative and oriented to person, place and time. Results & Data Results & Data ([facility]) Vital Signs (Past 12 Hours) Vital Signs Temp Pulse Pulse Resp BP Pulse Ox 04/01/21 16:15 36.5 C 64 16 126/69 97 04/01/21 15:10 36.5 C 62 16 136/75 93 04/01/21 14:10 36.4 C L 63 16 132/77 99 04/01/21 13:41 36.5 C 54 L 16 122/72 97 04/01/21 13:00 36.9 C 64 14 124/74 97 04/01/21 12:30 58 L 13 122/71 97 04/01/21 12:00 54 L 12 111/71 95 04/01/21 11:30 54 L 14 108/61 97 04/01/21 11:20 54 L 12 105/64 95 04/01/21 11:10 67 12 120/73 97 04/01/21 11:00 67 16 109/69 96 04/01/21 10:50 56 L 13 100/61 95 04/01/21 10:40 61 16 104/61 95 04/01/21 10:30 60 15 103/60 96 04/01/21 10:20 71 14 107/64 97 04/01/21 10:12 36.4 C L 72 16 124/73 98 04/01/21 06:19 36.4 C L 68 18 133/77 98 Laboratory Results Short CBC 04/01/21 Range/Units 10:45 Hgb 12.1 L (14.0-18.0) g/dL Hct 37.4 L (42-52) % Diagnostic Findings Lumbar Spine X-Ray 04/01/21 07:15 FL lumbar spine 2-3V CLINICAL HISTORY: L3-L4 D/F, L4-S1 HARDWARE REMOVAL COMPARISON STUDY: 10/28/2019 FLUOROSCOPY TIME: 13 seconds. FLUOROSCOPIC IMAGES: 2 FINDINGS: Compared to previous examination, interpedicular screw and kirill fixation is now seen from L3 through S1 with a disc spacer at the L3-4 disc space level. There is also evidence for laminectomies at L3, L4 and L5. IMPRESSION: Status post revision of spinal internal fixation ACT 112: Negative or not required by law. Electronically signed by: Luis Daniel Powers M.D. 04/01/2021 10:14 AM Medications Administered Current Inpatient Medications Acetaminophen (Acetaminophen 500 Mg Tab) 1,000 mg PO Q8H PRN PRN Reason: MILD Pain Scale 1,2,3 & Pre PT Stop: 05/01/21 13:10 Al Hydrox/Mg Hydrox/Simethicone (Aluminum/Magnesium Susp 30 Ml Udc) 30 ml PO Q6H PRN PRN Reason: Dyspepsia Stop: 05/01/21 13:10 Albuterol (Albuterol 0.083% Nebu Soln 3 Ml Vial) 2.5 mg INH Q4H PRN; Protocol PRN Reason: sob Stop: 05/01/21 13:10 Albuterol (Albuterol Hfa 8 Gm Inhaler) 1 puffs INH QID PRN PRN Reason: sob Stop: 05/01/21 13:10 Amlodipine Besylate (Amlodipine Besylate 5 Mg Tab) 5 mg PO HS ADE Stop: 05/01/21 20:59 Aspirin (Aspirin 81 Mg Ectab) 81 mg PO QAM ADE Stop: 05/02/21 08:59 Bisacodyl (Bisacodyl 10 Mg Supp) 10 mg NC DAILY PRN PRN Reason: Constipation Stop: 05/01/21 13:10 Diphenhydramine HCl (Diphenhydramine Capsule 25 Mg Cap) 25 mg PO Q6H PRN PRN Reason: Allergic Rhinitis/Insomnia Stop: 05/01/21 13:10 Famotidine (Famotidine 20 Mg Tab) 20 mg PO Q12H PRN PRN Reason: Dyspepsia Stop: 05/01/21 13:10 Fluticasone Furoate (Fluticasone Furoate 200mcg 14 Puffs/Inhaler) 1 puffs INH BIDR [facility] Stop: 05/01/21 18:59 Last Admin: 04/01/21 17:42 Dose: 1 puffs Documented by: Fluticasone Propionate (Fluticasone Propionate Na Spr 16 Gm Btl) 2 sprays NA HS [facility] Stop: 05/01/21 20:59 Hydromorphone HCl (Hydromorphone Inj 0.5 Mg/0.5 Ml Syr) 0.5 mg IV Q3H PRN PRN Reason: MODERATE Pain (Scale 4,5,6) & Pre PT Stop: 04/15/21 13:10 Hydromorphone HCl (Hydromorphone Inj 1 Mg/Ml Syringe) 1 mg IV Q3H PRN PRN Reason: SEVERE Pain (Scale 7,8,9,10) Stop: 04/15/21 13:10 Hydroxyzine HCl (Hydroxyzine Hcl 25 Mg Tab) 25 mg PO Q8H PRN PRN Reason: Anxiety Stop: 05/01/21 13:10 Lactated Ringer's (Lr) 1,000 mls @ 15 mls/hr IV .Q24H [facility] Stop: 04/02/21 05:59 Last Infusion: 04/01/21 07:39 Dose: Infused Documented by: Cefazolin Sodium (Ancef 2000mg) 2,000 mg in 15 mls @ 3.75 mls/min IV Q8H [facility]; Protocol Stop: 04/02/21 00:03 Last Admin: 04/01/21 16:40 Dose: 3.75 mls/min Documented by: Sodium Chloride (Nss 1000ml) 1,000 mls @ 150 mls/hr IV .Q6H40M [facility] Stop: 05/01/21 13:10 Last Admin: 04/01/21 13:20 Dose: 150 mls/hr Documented by: Promethazine HCl 12.5 mg/ (Sodium Chloride) 50.5 mls @ 202 mls/hr IV Q6H PRN PRN Reason: Nausea &/or Vomiting Stop: 05/01/21 13:10 Acetaminophen (Ofirmev) 1,000 mg in 100 mls @ 400 mls/hr IV Q8H PRN PRN Reason: Pain Rating 1-3 & Pre PT Stop: 04/04/21 13:10 Lorazepam (Ativan) 0.5 mg in 1 mls @ 1 mls/min IV Q8H PRN PRN Reason: Sedation/Anxiety Stop: 05/01/21 13:10 Dexamethasone 6 mg/ Syringe 1.5 mls @ 1 mls/min IV DAILY ADE Stop: 04/04/21 09:02 Influenza Virus Vaccine Quadrival (Do Not Administer Flu Vaccine) 1 ea N/A PRN PRN PRN Reason: Notification Stop: 05/01/21 13:10 Isosorbide Mononitrate (Isosorbide [place] Extended Rel 60 Mg Tabcr) 60 mg PO QAM [facility] Stop: 05/02/21 08:59 Labetalol HCl (Labetalol Hcl 200 Mg Tab) 400 mg PO BID ADE Stop: 05/01/21 20:59 Lorazepam (Lorazepam 0.5 Mg Tab) 0.5 mg PO Q8H PRN PRN Reason: Sedation/Anxiety Stop: 05/01/21 13:10 Losartan Potassium (Losartan Potassium 50 Mg Tab) 100 mg PO HS ADE Stop: 05/01/21 20:59 Magnesium Chloride (Magnesium Chloride 64mg Delayed Rel Tab) 128 mg PO HS ADE Stop: 05/01/21 20:59 Magnesium Hydroxide (Magnesium Hydroxide Susp 30 Ml Udc) 30 ml PO Q24H PRN PRN Reason: Constipation Stop: 05/01/21 13:10 Metoclopramide HCl (Metoclopramide Hcl Inj 5 Mg/Ml 2 Ml Vial) 10 mg IV Q6H PRN PRN Reason: Nausea &/or Vomiting Stop: 05/01/21 13:10 Miscellaneous (Cyclosporine [Cequa] 0.09 % ~ Order Awaiting Action) 1 ea N/A QS ADE Stop: 05/01/21 15:59 Last Admin: 04/01/21 15:23 Dose: Not Given Documented by: Montelukast Sodium (Montelukast Sodium 10 Mg Tablet) 10 mg PO HS [facility] Stop: 05/01/21 20:59 Multivitamins/Minerals (Cerovite Adv Formula Tab) 1 tab PO QAM [facility] Stop: 05/02/21 08:59 Naloxone HCl (Naloxone Hcl 0.4 Mg/1 Ml Vial/Carp) 0.1 mg IV Q5M PRN PRN Reason: Oversedation/Resp depression Stop: 05/01/21 13:10 Nitroglycerin (Nitroglycerin Sl 0.4 Mg/Tab Tab) 0.4 mg SL UD PRN PRN Reason: Chest Pain Stop: 05/01/21 13:10 Olodaterol (Olodaterol Hcl 2.5mcg/Actuation 60 Puffs/Inhaler) 2 puffs INH DAILY [facility] Stop: 05/02/21 08:59 Ondansetron HCl (Ondansetron Inj 2 Mg/Ml 2 Ml Vial) 4 mg IV Q6H PRN PRN Reason: Nausea &/or Vomiting Stop: 05/01/21 13:10 Ondansetron HCl (Ondansetron 4 Mg Od Tab) 4 mg PO Q6H PRN PRN Reason: Nausea Stop: 05/01/21 13:10 Oxycodone HCl (Oxycodone Hcl Ir 5 Mg Tab (Immediate Release)) 5 - 10 mg PO Q4H PRN PRN Reason: Pain & Pre PT Stop: 04/15/21 13:10 Pantoprazole Sodium (Pantoprazole 40 Mg Tab) 40 mg PO QPM [facility] Stop: 05/01/21 20:59 Pneumococcal Polyvalent Vaccine (Do Not Administer Pneumococcal Vaccine) 1 ea N/A PRN PRN PRN Reason: Notification Stop: 05/01/21 13:10 Polyethylene Glycol (Polyethylene (Miralax) 17 Gm Pack) 17 gm PO Q6 [facility] Stop: 05/02/21 05:59 Probenecid (Probenecid 500 Mg Tab) 500 mg PO BID [facility] Stop: 05/01/21 20:59 Senna/Docusate Sodium (Docusate Sodium/Senna 50/8.6mg Tab) 2 tab PO HS [facility] Stop: 05/01/21 20:59 Sodium Biphosphate/Sodium Phosphate (Sod Phosphate/Sod Biphosphate Enema 132 Ml Btl) 132 ml NC ONE PRN PRN Reason: Constipation Stop: 05/01/21 13:10 Tamsulosin HCl (Tamsulosin Hcl 0.4 Mg Cap) 0.4 mg PO BID [facility] Stop: 05/01/21 20:59 Tramadol HCl (Tramadol Hcl 50 Mg Tablet) 50 - 100 mg PO Q4H PRN PRN Reason: Moderate-Severe pain & Pre PT Stop: 05/01/21 13:10
[2021-04-01] MEDS: FLUTICASONE FUROATE 200MCG 14 PUFFS/INHALER INH SCH (17:42)
[2021-04-01] MEDS: DOCUSATE SODIUM/SENNA 50/8.6MG TAB PO SCH (21:27)
[2021-04-01] MEDS: TAMSULOSIN HCL 0.4 MG CAP PO SCH (21:28)
[2021-04-01] MEDS: LABETALOL HCL 200 MG TAB PO SCH (21:28)
[2021-04-01] MEDS: FLUTICASONE PROPIONATE NA SPR 16 GM BTL SCH (21:28)
[2021-04-01] MEDS: PANTOprazole 40 MG TAB PO SCH (21:28)
[2021-04-01] MEDS: amLODIPine BESYLATE 5 MG TAB PO SCH (21:28)
[2021-04-01] MEDS: LOSARTAN POTASSIUM 50 MG TAB PO SCH (21:28)
[2021-04-01] MEDS: PROBENECID 500 MG TAB PO SCH (21:28)
[2021-04-01] MEDS: MAGNESIUM CHLORIDE 64MG DELAYED REL TAB PO SCH (21:28)
[2021-04-01] MEDS: MONTELUKAST SODIUM 10 MG TABLET PO SCH (21:28)
[2021-04-02] MEDS: SODIUM CHLORIDE 0.9% 1000ML 1,000 ML IV SCH (03:02)
[2021-04-02] MEDS: POLYETHYLENE (MIRALAX) 17 GM PACK PO SCH ×4 (05:34→23:44)
[2021-04-02 06:04] LABS: Basophils # (auto) 0.01 K/uL (0-0.2); Basophils % (auto) 0.1 %; Eosinophils # (auto) 0.03 K/uL (0-0.5); Eosinophils % (auto) 0.2 %; Hematocrit (blood only) 34.2 % (42-52); Immature Granulocytes # (auto) 0.03 K/uL (0.00-0.02); Immature Granulocytes % (auto) 0.2 %; Lymphocytes # (auto) 1.49 K/uL (1.2-3.4); Lymphocytes % (auto) 10.8 %; Mean Corpuscular Hemoglobin 29.8 pg (25-34); Mean Corpuscular Hgb Conc 32.2 g/dL (32-36); Mean Corpuscular Volume 92.7 fL (80-100); Mean Platelet Volume 9.6 fL (7.4-10.4); Monocytes # (auto) 1.03 K/uL (0.11-0.59); Monocytes % (auto) 7.4 %; Neutrophils # (auto) 11.26 K/uL (1.4-6.5); Neutrophils % (auto) 81.3 %; Platelet Count 277 K/uL (130-400); RDW Coefficient of Variation 14.2 % (11.5-14.5); RDW Standard Deviation 48.2 fL (36.4-46.3); Red Blood Count 3.69 M/uL (4.7-6.1); White Blood Count 13.85 K/uL (4.8-10.8)
[2021-04-02] MEDS: FLUTICASONE FUROATE 200MCG 14 PUFFS/INHALER INH SCH ×2 (06:27→19:29)
[2021-04-02 06:37] LABS: BUN Creatinine Ratio 15.6 (10-20); Calcium 8.1 mg/dl (8.5-10.1); Creatinine Clr Calc Pharmacy 57.6 ml/min; Est GFR (African American) 62.5 ml/min; Est GFR (Non-African American) 53.9 ml/min
[2021-04-02] MEDS: LABETALOL HCL 200 MG TAB PO SCH ×2 (07:22→21:20)
[2021-04-02] MEDS: dexAMETHasone 6 MG in SYRINGE 0 ML IV SCH (07:47)
[2021-04-02] MEDS: ASPIRIN 81 MG ECTAB PO SCH (07:47)
[2021-04-02] MEDS: OLODATEROL HCL 2.5MCG/ACTUATION 60 PUFFS/INHALER INH SCH (07:48)
[2021-04-02] MEDS: CEROVITE ADV FORMULA TAB PO SCH (07:49)
[2021-04-02] MEDS: TAMSULOSIN HCL 0.4 MG CAP PO SCH ×2 (07:49→21:19)
[2021-04-02] MEDS: ISOSORBIDE MONO EXTENDED REL 60 MG TABCR PO SCH (07:50)
[2021-04-02] MEDS: PROBENECID 500 MG TAB PO SCH ×2 (07:50→21:19)
--- NOTE | 2021-04-02 08:10 | Hospitalist Progress Note ---
Date of Service April 02, 2021 Assessment & Plan (1) Neurogenic claudication due to lumbar spinal stenosis: (2) S/P spinal surgery: Plan: s/p lumbar surgery by Dr. Antonio (04/01/2021) POD #1 -pain/wound management per Ortho -VTE prophylaxis per Ortho, encourage early ambulation -incentive spirometry encouraged -CBC, BMP in am -PT/OT and activity restrictions per Ortho Acute blood loss anemia, post-op, expected pre-op Hgb about 15, on 03/22 hgb 12 - now 11 (04/02) - cont. to monitor H&H - no need for blood transfusion (3) Sleep apnea: Plan: has been without CPAP 2/2 recent recall on his machine. Declines hospital CPAP. (4) Gout: Plan: Cont probenecid per home regimen (5) Hypertension: Plan: chronic, controlled. Cont current therapy (6) Asthma: Plan: chronic, cont current inhaler therapy. (7) BPH (benign prostatic hyperplasia): Plan: chronic, stable. Cont flomax per home regimen. (8) DVT prophylaxis: Plan: SCDs Full Code Dispo-to home pending clearance by orthopedics. Admission and Anticipated Discharge Date Admission Date: April 01, 2021 Subjective Patient seen in follow-up after lumbar surgery yesterday Currently he is lying in bed, in no acute distress Walter catheter placed, draining yellow urine Patient reports no distress, no fevers, chills, chest pain, shortness of breath, no abdominal pain Says his legs are feeling better, no pain He says he has not been ambulating yet, however he was told that he should be seen by PT soon Review of Systems Review of Systems: All systems reviewed & are unremarkable except as noted in Subjective Physical Exam Physical Exam: CONSTITUTIONAL: WN/WD, vitals as above, generally well-appearing, NAD EYES: EOMI, PERRL, normal conjunctivae, no scleral icterus ENT: external ear and nose normal, oropharynx clear NECK: supple RESPIRATORY: clear to auscultation bilaterally, no crackles, rales or wheezes, normal respiratory effort CARDIOVASCULAR: regular rate and rhythm, S1 and 2 heard without murmurs, gallops or rubs, no JVD, no peripheral edema GASTROINTESTINAL: soft, nontender, ND, no guarding MUSCULOSKELETAL: strength 5/5 throughout, head is normocephalic and atraumatic, neck supple, lower extremities are warm and well-perfused. SKIN: warm and dry NEUROLOGIC:Alert oriented, answering questions appropriately, no facial asymmetry, speech fluent, moves extremities while laying in bed PSYCHIATRIC:Euthymic mood Results & Data Results & Data ([facility]) Vital Signs (Past 12 Hours) Vital Signs Temp Pulse Pulse Resp BP Pulse Ox 04/02/21 07:20 36.7 C 58 L 16 119/67 97 04/02/21 03:16 36.9 C 60 18 138/71 94 04/01/21 22:21 36.7 C 73 18 112/54 L 96 04/01/21 20:34 63 131/70 Laboratory Results 04/02/21 04/02/21 04/01/21 Range/Units 05:45 05:45 10:45 WBC 13.85 H (4.8-10.8) K/uL RBC 3.69 L (4.7-6.1) M/uL Hgb 11.0 L 12.1 L (14.0-18.0) g/dL Hct 34.2 L 37.4 L (42-52) % MCV 92.7 (80-100) fL MCH 29.8 (25-34) pg MCHC 32.2 (32-36) g/dL RDW Std Deviation 48.2 H (36.4-46.3) fL RDW Coeff of Tim 14.2 (11.5-14.5) % Plt Count 277 (130-400) K/uL MPV 9.6 (7.4-10.4) fL Immature Gran % (Auto) 0.2 % Neut % (Auto) 81.3 % Lymph % (Auto) 10.8 % Howell % (Auto) 7.4 % Eos % (Auto) 0.2 % Baso % (Auto) 0.1 % Neut # (Auto) 11.26 H (1.4-6.5) K/uL Lymph # (Auto) 1.49 (1.2-3.4) K/uL Howell # (Auto) 1.03 H (0.11-0.59) K/uL Eos # (Auto) 0.03 (0-0.5) K/uL Baso # (Auto) 0.01 (0-0.2) K/uL Immature Gran # (Auto) 0.03 H (0.00-0.02) K/uL Sodium 140 (136-145) mmol/L Potassium 4.0 (3.5-5.1) mmol/L Chloride 111 H (98-107) mmol/L Carbon Dioxide 25 (21-32) mmol/L Anion Gap 4.0 (3-11) BUN 20 H (7-18) mg/dl Creatinine 1.26 (0.6-1.4) mg/dl Est Cr Clr Drug Dosing 57.6 ml/min Est GFR ( Amer) 62.5 ml/min Est GFR (Non-Af Amer) 53.9 ml/min BUN/Creatinine Ratio 15.6 (10-20) Glucose 116 H (70-99) mg/dl Calcium 8.1 L (8.5-10.1) mg/dl Medications Administered Current Inpatient Medications Acetaminophen (Acetaminophen 500 Mg Tab) 1,000 mg PO Q8H PRN PRN Reason: MILD Pain Scale 1,2,3 & Pre PT Stop: 05/01/21 13:10 Al Hydrox/Mg Hydrox/Simethicone (Aluminum/Magnesium Susp 30 Ml Udc) 30 ml PO Q6H PRN PRN Reason: Dyspepsia Stop: 05/01/21 13:10 Albuterol (Albuterol 0.083% Nebu Soln 3 Ml Vial) 2.5 mg INH Q4H PRN; Protocol PRN Reason: sob Stop: 05/01/21 13:10 Albuterol (Albuterol Hfa 8 Gm Inhaler) 1 puffs INH QID PRN PRN Reason: sob Stop: 05/01/21 13:10 Amlodipine Besylate (Amlodipine Besylate 5 Mg Tab) 5 mg PO HS ADE Stop: 05/01/21 20:59 Last Admin: 04/01/21 21:28 Dose: 5 mg Documented by: Aspirin (Aspirin 81 Mg Ectab) 81 mg PO QA ADE Stop: 05/02/21 08:59 Last Admin: 04/02/21 07:47 Dose: 81 mg Documented by: Bisacodyl (Bisacodyl 10 Mg Supp) 10 mg ND DAILY PRN PRN Reason: Constipation Stop: 05/01/21 13:10 Diphenhydramine HCl (Diphenhydramine Capsule 25 Mg Cap) 25 mg PO Q6H PRN PRN Reason: Allergic Rhinitis/Insomnia Stop: 05/01/21 13:10 Famotidine (Famotidine 20 Mg Tab) 20 mg PO Q12H PRN PRN Reason: Dyspepsia Stop: 05/01/21 13:10 Fluticasone Furoate (Fluticasone Furoate 200mcg 14 Puffs/Inhaler) 1 puffs INH BIDR ADE Stop: 05/01/21 18:59 Last Admin: 04/02/21 06:27 Dose: 1 puffs Documented by: Fluticasone Propionate (Fluticasone Propionate Na Spr 16 Gm Btl) 2 sprays NA HS ADE Stop: 05/01/21 20:59 Last Admin: 04/01/21 21:28 Dose: 2 sprays Documented by: Hydromorphone HCl (Hydromorphone Inj 0.5 Mg/0.5 Ml Syr) 0.5 mg IV Q3H PRN PRN Reason: MODERATE Pain (Scale 4,5,6) & Pre PT Stop: 04/15/21 13:10 Hydromorphone HCl (Hydromorphone Inj 1 Mg/Ml Syringe) 1 mg IV Q3H PRN PRN Reason: SEVERE Pain (Scale 7,8,9,10) Stop: 04/15/21 13:10 Hydroxyzine HCl (Hydroxyzine Hcl 25 Mg Tab) 25 mg PO Q8H PRN PRN Reason: Anxiety Stop: 05/01/21 13:10 Promethazine HCl 12.5 mg/ (Sodium Chloride) 50.5 mls @ 202 mls/hr IV Q6H PRN PRN Reason: Nausea &/or Vomiting Stop: 05/01/21 13:10 Acetaminophen (Ofirmev) 1,000 mg in 100 mls @ 400 mls/hr IV Q8H PRN PRN Reason: Pain Rating 1-3 & Pre PT Stop: 04/04/21 13:10 Lorazepam (Ativan) 0.5 mg in 1 mls @ 1 mls/min IV Q8H PRN PRN Reason: Sedation/Anxiety Stop: 05/01/21 13:10 Dexamethasone 6 mg/ Syringe 1.5 mls @ 1 mls/min IV DAILY ADE Stop: 04/04/21 09:02 Last Admin: 04/02/21 07:47 Dose: 1 mls/min Documented by: Influenza Virus Vaccine Quadrival (Do Not Administer Flu Vaccine) 1 ea N/A PRN PRN PRN Reason: Notification Stop: 05/01/21 13:10 Isosorbide Mononitrate (Isosorbide [place] Extended Rel 60 Mg Tabcr) 60 mg PO QAM [facility] Stop: 05/02/21 08:59 Last Admin: 04/02/21 07:50 Dose: 60 mg Documented by: Labetalol HCl (Labetalol Hcl 200 Mg Tab) 400 mg PO BID [facility] Stop: 05/01/21 20:59 Last Admin: 04/02/21 07:22 Dose: Not Given Documented by: Lorazepam (Lorazepam 0.5 Mg Tab) 0.5 mg PO Q8H PRN PRN Reason: Sedation/Anxiety Stop: 05/01/21 13:10 Losartan Potassium (Losartan Potassium 50 Mg Tab) 100 mg PO [facility] Stop: 05/01/21 20:59 Last Admin: 04/01/21 21:28 Dose: 100 mg Documented by: Magnesium Chloride (Magnesium Chloride 64mg Delayed Rel Tab) 128 mg PO [facility] Stop: 05/01/21 20:59 Last Admin: 04/01/21 21:28 Dose: 128 mg Documented by: Magnesium Hydroxide (Magnesium Hydroxide Susp 30 Ml Udc) 30 ml PO Q24H PRN PRN Reason: Constipation Stop: 05/01/21 13:10 Metoclopramide HCl (Metoclopramide Hcl Inj 5 Mg/Ml 2 Ml Vial) 10 mg IV Q6H PRN PRN Reason: Nausea &/or Vomiting Stop: 05/01/21 13:10 Miscellaneous (Cyclosporine [Cequa] 0.09 % ~ Order Awaiting Action) 1 ea N/A QS [facility] Stop: 05/01/21 15:59 Last Admin: 04/02/21 07:22 Dose: Not Given Documented by: Montelukast Sodium (Montelukast Sodium 10 Mg Tablet) 10 mg PO [facility] Stop: 05/01/21 20:59 Last Admin: 04/01/21 21:28 Dose: 10 mg Documented by: Multivitamins/Minerals (Cerovite Adv Formula Tab) 1 tab PO QAM [facility] Stop: 05/02/21 08:59 Last Admin: 04/02/21 07:49 Dose: 1 tab Documented by: Naloxone HCl (Naloxone Hcl 0.4 Mg/1 Ml Vial/Carp) 0.1 mg IV Q5M PRN PRN Reason: Oversedation/Resp depression Stop: 05/01/21 13:10 Nitroglycerin (Nitroglycerin Sl 0.4 Mg/Tab Tab) 0.4 mg SL UD PRN PRN Reason: Chest Pain Stop: 05/01/21 13:10 Olodaterol (Olodaterol Hcl 2.5mcg/Actuation 60 Puffs/Inhaler) 2 puffs INH DAILY [facility] Stop: 05/02/21 08:59 Last Admin: 04/02/21 07:48 Dose: 2 puffs Documented by: Ondansetron HCl (Ondansetron Inj 2 Mg/Ml 2 Ml Vial) 4 mg IV Q6H PRN PRN Reason: Nausea &/or Vomiting Stop: 05/01/21 13:10 Ondansetron HCl (Ondansetron 4 Mg Od Tab) 4 mg PO Q6H PRN PRN Reason: Nausea Stop: 05/01/21 13:10 Oxycodone HCl (Oxycodone Hcl Ir 5 Mg Tab (Immediate Release)) 5 - 10 mg PO Q4H PRN PRN Reason: Pain & Pre PT Stop: 04/15/21 13:10 Pantoprazole Sodium (Pantoprazole 40 Mg Tab) 40 mg PO QPM [facility] Stop: 05/01/21 20:59 Last Admin: 04/01/21 21:28 Dose: 40 mg Documented by: Pneumococcal Polyvalent Vaccine (Do Not Administer Pneumococcal Vaccine) 1 ea N/A PRN PRN PRN Reason: Notification Stop: 05/01/21 13:10 Polyethylene Glycol (Polyethylene (Miralax) 17 Gm Pack) 17 gm PO Q6 [facility] Stop: 05/02/21 05:59 Last Admin: 04/02/21 05:34 Dose: 17 gm Documented by: Probenecid (Probenecid 500 Mg Tab) 500 mg PO BID [facility] Stop: 05/01/21 20:59 Last Admin: 04/02/21 07:50 Dose: 500 mg Documented by: Senna/Docusate Sodium (Docusate Sodium/Senna 50/8.6mg Tab) 2 tab PO HS [facility] Stop: 05/01/21 20:59 Last Admin: 04/01/21 21:27 Dose: 2 tab Documented by: Sodium Biphosphate/Sodium Phosphate (Sod Phosphate/Sod Biphosphate Enema 132 Ml Btl) 132 ml ND ONE PRN PRN Reason: Constipation Stop: 05/01/21 13:10 Tamsulosin HCl (Tamsulosin Hcl 0.4 Mg Cap) 0.4 mg PO BID ADE Stop: 05/01/21 20:59 Last Admin: 04/02/21 07:49 Dose: 0.4 mg Documented by: Tramadol HCl (Tramadol Hcl 50 Mg Tablet) 50 - 100 mg PO Q4H PRN PRN Reason: Moderate-Severe pain & Pre PT Stop: 05/01/21 13:10
[2021-04-02] MEDS ORDERED: NON-FORMULARY MEDICATION (Potassium Gluconate 595 mg (99 mg) Tablet) PO SCH (09:00)
--- NOTE | 2021-04-02 13:07 | Orthopedic Progress Note ---
Date of Service April 02, 2021 Assessment & Plan (1) Neurogenic claudication due to lumbar spinal stenosis: Plan: At this time we will continue physical therapy monitor his JORGE output hopefully discharge home in next few days. Admission and Anticipated Discharge Date Admission Date: April 01, 2021 Subjective Back pain controlled leg pain markedly improved Physical Exam Physical Exam: On exam he appears comfortable. Is ambulating halls. Is good strength testing. Results & Data ([facility]) Vital Signs (Past 12 Hours) Vital Signs Temp Pulse Pulse Resp BP Pulse Ox 04/02/21 07:20 36.7 C 58 L 16 119/67 97 04/02/21 03:16 36.9 C 60 18 138/71 94
[2021-04-02] MEDS: FLUTICASONE PROPIONATE NA SPR 16 GM BTL SCH (21:19)
[2021-04-02] MEDS: amLODIPine BESYLATE 5 MG TAB PO SCH (21:19)
[2021-04-02] MEDS: MONTELUKAST SODIUM 10 MG TABLET PO SCH (21:20)
[2021-04-02] MEDS: PANTOprazole 40 MG TAB PO SCH (21:20)
[2021-04-02] MEDS: MAGNESIUM CHLORIDE 64MG DELAYED REL TAB PO SCH (21:20)
[2021-04-02] MEDS: DOCUSATE SODIUM/SENNA 50/8.6MG TAB PO SCH (21:21)
[2021-04-02] MEDS: LOSARTAN POTASSIUM 50 MG TAB PO SCH (21:21)
[2021-04-03] MEDS: POLYETHYLENE (MIRALAX) 17 GM PACK PO SCH ×2 (05:18→12:43)
[2021-04-03 07:19] LABS: Hematocrit (blood only) 35.3 % (42-52); Hemoglobin 11.8 g/dL (14.0-18.0); Mean Corpuscular Hemoglobin 30.7 pg (25-34); Mean Corpuscular Hgb Conc 33.4 g/dL (32-36); Mean Corpuscular Volume 91.9 fL (80-100); Mean Platelet Volume 9.9 fL (7.4-10.4); Platelet Count 272 K/uL (130-400); RDW Coefficient of Variation 14.2 % (11.5-14.5); RDW Standard Deviation 48.2 fL (36.4-46.3); Red Blood Count 3.84 M/uL (4.7-6.1); White Blood Count 11.76 K/uL (4.8-10.8)
[2021-04-03 07:55] LABS: BUN Creatinine Ratio 15.6 (10-20); Calcium 8.5 mg/dl (8.5-10.1); Creatinine Clr Calc Pharmacy 66.6 ml/min; Est GFR (African American) 74.4 ml/min; Est GFR (Non-African American) 64.2 ml/min; Magnesium 2.1 mg/dl (1.8-2.4); Phosphorus 2.2 mg/dl (2.5-4.9); Potassium 3.9 mmol/L (3.5-5.1)
[2021-04-03] MEDS: FLUTICASONE FUROATE 200MCG 14 PUFFS/INHALER INH SCH ×2 (09:21→18:45)
[2021-04-03] MEDS: ASPIRIN 81 MG ECTAB PO SCH (09:25)
[2021-04-03] MEDS: OLODATEROL HCL 2.5MCG/ACTUATION 60 PUFFS/INHALER INH SCH (09:25)
[2021-04-03] MEDS: TAMSULOSIN HCL 0.4 MG CAP PO SCH ×2 (09:26→21:06)
[2021-04-03] MEDS: CEROVITE ADV FORMULA TAB PO SCH (09:26)
[2021-04-03] MEDS: ISOSORBIDE MONO EXTENDED REL 60 MG TABCR PO SCH (09:26)
[2021-04-03] MEDS: LABETALOL HCL 200 MG TAB PO SCH ×2 (09:26→21:06)
[2021-04-03] MEDS: PROBENECID 500 MG TAB PO SCH ×2 (09:26→21:06)
--- NOTE | 2021-04-03 09:52 | Hospitalist Progress Note ---
Date of Service April 03, 2021 Assessment & Plan (1) Neurogenic claudication due to lumbar spinal stenosis: (2) S/P spinal surgery: Plan: s/p lumbar surgery by Dr. Antonio (04/01/2021) POD #2 -pain/wound management per Ortho -VTE prophylaxis per Ortho, encourage early ambulation -incentive spirometry encouraged -monitor CBC, BMP -PT/OT and activity restrictions per Ortho Acute blood loss anemia, post-op, expected pre-op Hgb about 15, on 03/22 hgb 12 - now 11.8 (04/03/21) stable, - yesterday 11 - cont. to monitor H&H - no need for blood transfusion (3) Sleep apnea: Plan: has been without CPAP 2/2 recent recall on his machine. Declines hospital CPAP. (4) Gout: Plan: Cont probenecid per home regimen (5) Hypertension: Plan: chronic, controlled. Cont current therapy (6) Asthma: Plan: chronic, cont current inhaler therapy. (7) BPH (benign prostatic hyperplasia): Plan: chronic, stable. Cont flomax per home regimen. (8) DVT prophylaxis: Plan: SCDs Full Code Dispo-to home pending clearance by orthopedics. Admission and Anticipated Discharge Date Admission Date: April 01, 2021 Subjective Patient seen in follow-up after lumbar surgery 2 days ago Currently he is ambulating hallways with PT, in no acute distress Walter catheter removed, pt reports voiding w/o difficulty and having BMs Overall feeling well Patient denies fevers, chills, chest pain, shortness of breath, no abdominal pain Says his legs are feeling better, no pain at this time Denies back pain Review of Systems Review of Systems: All systems reviewed & are unremarkable except as noted in Subjective Physical Exam Physical Exam: CONSTITUTIONAL: WN/WD, generally well-appearing M, NAD EYES: EOMI, PERRL, normal conjunctivae, no scleral icterus ENT: external ear and nose normal, oropharynx clear NECK: supple RESPIRATORY: clear to auscultation bilaterally, no crackles, rales or wheezes, normal respiratory effort CARDIOVASCULAR: regular rate and rhythm, S1 and 2 heard without murmurs, gallops or rubs, no JVD, no peripheral edema GASTROINTESTINAL: soft, nontender, ND, no guarding MUSCULOSKELETAL: strength 5/5 throughout, head is normocephalic and atraumatic, neck supple, lower extremities are warm and well-perfused. SKIN: warm and dry NEUROLOGIC:Alert oriented, answering questions appropriately, no facial asymmetry, speech fluent, moves extremities PSYCHIATRIC:Euthymic mood Results & Data Results & Data ([facility]) Vital Signs (Past 12 Hours) Vital Signs Temp Pulse Resp BP Pulse Ox 04/03/21 09:20 68 118/66 04/02/21 22:37 36.9 C 65 18 150/76 H 92 Laboratory Results 04/03/21 04/03/21 Range/Units 06:02 06:02 WBC 11.76 H (4.8-10.8) K/uL RBC 3.84 L (4.7-6.1) M/uL Hgb 11.8 L (14.0-18.0) g/dL Hct 35.3 L (42-52) % MCV 91.9 (80-100) fL MCH 30.7 (25-34) pg MCHC 33.4 (32-36) g/dL RDW Std Deviation 48.2 H (36.4-46.3) fL RDW Coeff of Tim 14.2 (11.5-14.5) % Plt Count 272 (130-400) K/uL MPV 9.9 (7.4-10.4) fL Sodium 142 (136-145) mmol/L Potassium 3.9 (3.5-5.1) mmol/L Chloride 110 H (98-107) mmol/L Carbon Dioxide 27 (21-32) mmol/L Anion Gap 5.0 (3-11) BUN 17 (7-18) mg/dl Creatinine 1.09 (0.6-1.4) mg/dl Est Cr Clr Drug Dosing 66.6 ml/min Est GFR ( Amer) 74.4 ml/min Est GFR (Non-Af Amer) 64.2 ml/min BUN/Creatinine Ratio 15.6 (10-20) Glucose 101 H (70-99) mg/dl Calcium 8.5 (8.5-10.1) mg/dl Phosphorus 2.2 L (2.5-4.9) mg/dl Magnesium 2.1 (1.8-2.4) mg/dl Medications Administered Current Inpatient Medications Acetaminophen (Acetaminophen 500 Mg Tab) 1,000 mg PO Q8H PRN PRN Reason: MILD Pain Scale 1,2,3 & Pre PT Stop: 05/01/21 13:10 Al Hydrox/Mg Hydrox/Simethicone (Aluminum/Magnesium Susp 30 Ml Udc) 30 ml PO Q6H PRN PRN Reason: Dyspepsia Stop: 05/01/21 13:10 Albuterol (Albuterol 0.083% Nebu Soln 3 Ml Vial) 2.5 mg INH Q4H PRN; Protocol PRN Reason: sob Stop: 05/01/21 13:10 Albuterol (Albuterol Hfa 8 Gm Inhaler) 1 puffs INH QID PRN PRN Reason: sob Stop: 05/01/21 13:10 Amlodipine Besylate (Amlodipine Besylate 5 Mg Tab) 5 mg PO [facility] Stop: 05/01/21 20:59 Last Admin: 04/02/21 21:19 Dose: 5 mg Documented by: Aspirin (Aspirin 81 Mg Ectab) 81 mg PO QAM [facility] Stop: 05/02/21 08:59 Last Admin: 04/03/21 09:25 Dose: 81 mg Documented by: Bisacodyl (Bisacodyl 10 Mg Supp) 10 mg [place] DAILY PRN PRN Reason: Constipation Stop: 05/01/21 13:10 Diphenhydramine HCl (Diphenhydramine Capsule 25 Mg Cap) 25 mg PO Q6H PRN PRN Reason: Allergic Rhinitis/Insomnia Stop: 05/01/21 13:10 Famotidine (Famotidine 20 Mg Tab) 20 mg PO Q12H PRN PRN Reason: Dyspepsia Stop: 05/01/21 13:10 Fluticasone Furoate (Fluticasone Furoate 200mcg 14 Puffs/Inhaler) 1 puffs INH BIDR [facility] Stop: 05/01/21 18:59 Last Admin: 04/03/21 09:21 Dose: 1 puffs Documented by: Fluticasone Propionate (Fluticasone Propionate Na Spr 16 Gm Btl) 2 sprays NA HS [facility] Stop: 05/01/21 20:59 Last Admin: 04/02/21 21:19 Dose: 2 sprays Documented by: Hydromorphone HCl (Hydromorphone Inj 0.5 Mg/0.5 Ml Syr) 0.5 mg IV Q3H PRN PRN Reason: MODERATE Pain (Scale 4,5,6) & Pre PT Stop: 04/15/21 13:10 Hydromorphone HCl (Hydromorphone Inj 1 Mg/Ml Syringe) 1 mg IV Q3H PRN PRN Reason: SEVERE Pain (Scale 7,8,9,10) Stop: 04/15/21 13:10 Hydroxyzine HCl (Hydroxyzine Hcl 25 Mg Tab) 25 mg PO Q8H PRN PRN Reason: Anxiety Stop: 05/01/21 13:10 Promethazine HCl 12.5 mg/ (Sodium Chloride) 50.5 mls @ 202 mls/hr IV Q6H PRN PRN Reason: Nausea &/or Vomiting Stop: 05/01/21 13:10 Acetaminophen (Ofirmev) 1,000 mg in 100 mls @ 400 mls/hr IV Q8H PRN PRN Reason: Pain Rating 1-3 & Pre PT Stop: 04/04/21 13:10 Lorazepam (Ativan) 0.5 mg in 1 mls @ 1 mls/min IV Q8H PRN PRN Reason: Sedation/Anxiety Stop: 05/01/21 13:10 Dexamethasone 6 mg/ Syringe 1.5 mls @ 1 mls/min IV DAILY [facility] Stop: 04/04/21 09:02 Last Admin: 04/02/21 07:47 Dose: 1 mls/min Documented by: Influenza Virus Vaccine Quadrival (Do Not Administer Flu Vaccine) 1 ea N/A PRN PRN PRN Reason: Notification Stop: 05/01/21 13:10 Isosorbide Mononitrate (Isosorbide [place] Extended Rel 60 Mg Tabcr) 60 mg PO QAM [facility] Stop: 05/02/21 08:59 Last Admin: 04/03/21 09:26 Dose: 60 mg Documented by: Labetalol HCl (Labetalol Hcl 200 Mg Tab) 400 mg PO BID [facility] Stop: 05/01/21 20:59 Last Admin: 04/03/21 09:26 Dose: 400 mg Documented by: Lorazepam (Lorazepam 0.5 Mg Tab) 0.5 mg PO Q8H PRN PRN Reason: Sedation/Anxiety Stop: 05/01/21 13:10 Losartan Potassium (Losartan Potassium 50 Mg Tab) 100 mg PO HS [facility] Stop: 05/01/21 20:59 Last Admin: 04/02/21 21:21 Dose: 100 mg Documented by: Magnesium Chloride (Magnesium Chloride 64mg Delayed Rel Tab) 128 mg PO [facility] Stop: 05/01/21 20:59 Last Admin: 04/02/21 21:20 Dose: 128 mg Documented by: Magnesium Hydroxide (Magnesium Hydroxide Susp 30 Ml Udc) 30 ml PO Q24H PRN PRN Reason: Constipation Stop: 05/01/21 13:10 Metoclopramide HCl (Metoclopramide Hcl Inj 5 Mg/Ml 2 Ml Vial) 10 mg IV Q6H PRN PRN Reason: Nausea &/or Vomiting Stop: 05/01/21 13:10 Miscellaneous (Cyclosporine [Cequa] 0.09 % ~ Order Awaiting Action) 1 ea N/A QS [facility] Stop: 05/01/21 15:59 Last Admin: 04/03/21 09:20 Dose: Not Given Documented by: Montelukast Sodium (Montelukast Sodium 10 Mg Tablet) 10 mg PO [facility] Stop: 05/01/21 20:59 Last Admin: 04/02/21 21:20 Dose: 10 mg Documented by: Multivitamins/Minerals (Cerovite Adv Formula Tab) 1 tab PO QAM [facility] Stop: 05/02/21 08:59 Last Admin: 04/03/21 09:26 Dose: 1 tab Documented by: Naloxone HCl (Naloxone Hcl 0.4 Mg/1 Ml Vial/Carp) 0.1 mg IV Q5M PRN PRN Reason: Oversedation/Resp depression Stop: 05/01/21 13:10 Nitroglycerin (Nitroglycerin Sl 0.4 Mg/Tab Tab) 0.4 mg SL UD PRN PRN Reason: Chest Pain Stop: 05/01/21 13:10 Olodaterol (Olodaterol Hcl 2.5mcg/Actuation 60 Puffs/Inhaler) 2 puffs INH DAILY [facility] Stop: 05/02/21 08:59 Last Admin: 04/03/21 09:25 Dose: 2 puffs Documented by: Ondansetron HCl (Ondansetron Inj 2 Mg/Ml 2 Ml Vial) 4 mg IV Q6H PRN PRN Reason: Nausea &/or Vomiting Stop: 05/01/21 13:10 Ondansetron HCl (Ondansetron 4 Mg Od Tab) 4 mg PO Q6H PRN PRN Reason: Nausea Stop: 05/01/21 13:10 Oxycodone HCl (Oxycodone Hcl Ir 5 Mg Tab (Immediate Release)) 5 - 10 mg PO Q4H PRN PRN Reason: Pain & Pre PT Stop: 04/15/21 13:10 Pantoprazole Sodium (Pantoprazole 40 Mg Tab) 40 mg PO QPM [facility] Stop: 05/01/21 20:59 Last Admin: 04/02/21 21:20 Dose: 40 mg Documented by: Pneumococcal Polyvalent Vaccine (Do Not Administer Pneumococcal Vaccine) 1 ea N/A PRN PRN PRN Reason: Notification Stop: 05/01/21 13:10 Polyethylene Glycol (Polyethylene (Miralax) 17 Gm Pack) 17 gm PO Q6 [facility] Stop: 05/02/21 05:59 Last Admin: 04/03/21 05:18 Dose: 17 gm Documented by: Probenecid (Probenecid 500 Mg Tab) 500 mg PO BID [facility] Stop: 05/01/21 20:59 Last Admin: 04/03/21 09:26 Dose: 500 mg Documented by: Senna/Docusate Sodium (Docusate Sodium/Senna 50/8.6mg Tab) 2 tab PO HS [facility] Stop: 05/01/21 20:59 Last Admin: 04/02/21 21:21 Dose: 2 tab Documented by: Sodium Biphosphate/Sodium Phosphate (Sod Phosphate/Sod Biphosphate Enema 132 Ml Btl) 132 ml [place] ONE PRN PRN Reason: Constipation Stop: 05/01/21 13:10 Tamsulosin HCl (Tamsulosin Hcl 0.4 Mg Cap) 0.4 mg PO BID [facility] Stop: 05/01/21 20:59 Last Admin: 04/03/21 09:26 Dose: 0.4 mg Documented by: Tramadol HCl (Tramadol Hcl 50 Mg Tablet) 50 - 100 mg PO Q4H PRN PRN Reason: Moderate-Severe pain & Pre PT Stop: 05/01/21 13:10
--- NOTE | 2021-04-03 11:08 | Orthopedic Progress Note ---
Date of Service April 03, 2021 Assessment & Plan (1) Neurogenic claudication due to lumbar spinal stenosis: Plan: At this time we will continue physical therapy monitor his JORGE operatively discharge home tomorrow. Admission and Anticipated Discharge Date Admission Date: April 01, 2021 Subjective Back pain controlled leg pain improved. He has had a bowel movement and urinating well. Physical Exam Physical Exam: Exam is good strength testing appears comfortable. Results & Data ([facility]) Vital Signs (Past 12 Hours) Vital Signs Pulse BP 04/03/21 09:20 68 118/66
[2021-04-03] MEDS: dexAMETHasone 6 MG in SYRINGE 0 ML IV SCH (11:27)
[2021-04-03] MEDS: FLUTICASONE PROPIONATE NA SPR 16 GM BTL SCH (21:05)
[2021-04-03] MEDS: MAGNESIUM CHLORIDE 64MG DELAYED REL TAB PO SCH (21:06)
[2021-04-03] MEDS: amLODIPine BESYLATE 5 MG TAB PO SCH (21:06)
[2021-04-03] MEDS: MONTELUKAST SODIUM 10 MG TABLET PO SCH (21:07)
[2021-04-03] MEDS: LOSARTAN POTASSIUM 50 MG TAB PO SCH (21:07)
[2021-04-03] MEDS: DOCUSATE SODIUM/SENNA 50/8.6MG TAB PO SCH (21:07)
[2021-04-03] MEDS: PANTOprazole 40 MG TAB PO SCH (21:07)
--- NOTE | 2021-04-04 04:34 | Hospitalist Progress Note ---
Date of Service April 04, 2021 Assessment & Plan (1) Neurogenic claudication due to lumbar spinal stenosis: (2) S/P spinal surgery: Plan: s/p lumbar surgery by Dr. Antonio (04/01/2021) POD #3 -pain/wound management per Ortho -VTE prophylaxis per Ortho, encourage early ambulation -incentive spirometry encouraged -monitor CBC, BMP -PT/OT and activity restrictions per Ortho Acute blood loss anemia, post-op, expected pre-op Hgb about 15, on 03/22 hgb 12 - now 11.4 (04/04/21) stable from previous days - cont. to monitor H&H - no need for blood transfusion (3) Sleep apnea: Plan: has been without CPAP 2/2 recent recall on his machine. Declines hospital CPAP. (4) Gout: Plan: Cont probenecid per home regimen (5) Hypertension: Plan: chronic, controlled. Cont current therapy (6) Asthma: Plan: chronic, cont current inhaler therapy. (7) BPH (benign prostatic hyperplasia): Plan: chronic, stable. Cont flomax per home regimen. (8) DVT prophylaxis: Plan: SCDs Full Code Dispo-to home pending clearance by orthopedics, per pt possibly DC today Admission and Anticipated Discharge Date Admission Date: April 01, 2021 Subjective Patient seen in follow-up after lumbar surgery 3 days ago Yesterday seen ambulating hallways with PT, in no acute distress Currently laying in bed, in no acute distress Reports no acute events overnight, feeling well overall Walter catheter removed, pt reports voiding w/o difficulty and having BMs Patient denies fevers, chills, chest pain, shortness of breath, no abdominal pain Says his legs are feeling better, no pain at this time Denies back pain Review of Systems Review of Systems: All systems reviewed & are unremarkable except as noted in Subjective Physical Exam Physical Exam: CONSTITUTIONAL: WN/WD, generally well-appearing M, NAD EYES: EOMI, PERRL, normal conjunctivae, no scleral icterus ENT: external ear and nose normal, oropharynx clear NECK: supple RESPIRATORY: clear to auscultation bilaterally, no crackles, rales or wheezes, normal respiratory effort CARDIOVASCULAR: regular rate and rhythm, S1 and 2 heard without murmurs, gallops or rubs, no JVD, no peripheral edema GASTROINTESTINAL: soft, nontender, ND, no guarding MUSCULOSKELETAL: strength 5/5 throughout, head is normocephalic and atraumatic, neck supple, lower extremities are warm and well-perfused. SKIN: warm and dry NEUROLOGIC:Alert oriented, answering questions appropriately, no facial asymmetry, speech fluent, moves extremities PSYCHIATRIC:Euthymic mood Results & Data Results & Data ([facility] [place]) Vital Signs (Past 12 Hours) Vital Signs Temp Pulse Resp BP Pulse Ox 04/03/21 22:19 36.9 C 77 18 122/63 94 Laboratory Results 04/04/21 04/04/21 Range/Units 05:17 05:17 Hgb 11.4 L (14.0-18.0) g/dL Hct 35.8 L (42-52) % Sodium 139 (136-145) mmol/L Potassium 4.1 (3.5-5.1) mmol/L Chloride 107 (98-107) mmol/L Carbon Dioxide 29 (21-32) mmol/L Anion Gap 3.0 (3-11) BUN 22 H (7-18) mg/dl Creatinine 1.23 (0.6-1.4) mg/dl Est Cr Clr Drug Dosing 59.0 ml/min Est GFR ( Amer) 64.3 ml/min Est GFR (Non-Af Amer) 55.5 ml/min BUN/Creatinine Ratio 18.0 (10-20) Glucose 107 H (70-99) mg/dl Calcium 8.9 (8.5-10.1) mg/dl Medications Administered Current Inpatient Medications Acetaminophen (Acetaminophen 500 Mg Tab) 1,000 mg PO Q8H PRN PRN Reason: MILD Pain Scale 1,2,3 & Pre PT Stop: 05/01/21 13:10 Al Hydrox/Mg Hydrox/Simethicone (Aluminum/Magnesium Susp 30 Ml Udc) 30 ml PO Q6H PRN PRN Reason: Dyspepsia Stop: 05/01/21 13:10 Albuterol (Albuterol 0.083% Nebu Soln 3 Ml Vial) 2.5 mg INH Q4H PRN; Protocol PRN Reason: sob Stop: 05/01/21 13:10 Albuterol (Albuterol Hfa 8 Gm Inhaler) 1 puffs INH QID PRN PRN Reason: sob Stop: 05/01/21 13:10 Amlodipine Besylate (Amlodipine Besylate 5 Mg Tab) 5 mg PO [facility] Stop: 05/01/21 20:59 Last Admin: 04/03/21 21:06 Dose: 5 mg Documented by: Aspirin (Aspirin 81 Mg Ectab) 81 mg PO QAM [facility] Stop: 05/02/21 08:59 Last Admin: 04/03/21 09:25 Dose: 81 mg Documented by: Bisacodyl (Bisacodyl 10 Mg Supp) 10 mg [place] DAILY PRN PRN Reason: Constipation Stop: 05/01/21 13:10 Diphenhydramine HCl (Diphenhydramine Capsule 25 Mg Cap) 25 mg PO Q6H PRN PRN Reason: Allergic Rhinitis/Insomnia Stop: 05/01/21 13:10 Famotidine (Famotidine 20 Mg Tab) 20 mg PO Q12H PRN PRN Reason: Dyspepsia Stop: 05/01/21 13:10 Fluticasone Furoate (Fluticasone Furoate 200mcg 14 Puffs/Inhaler) 1 puffs INH BIDR [facility] Stop: 05/01/21 18:59 Last Admin: 04/03/21 18:45 Dose: 1 puffs Documented by: Fluticasone Propionate (Fluticasone Propionate Na Spr 16 Gm Btl) 2 sprays NA [facility] Stop: 05/01/21 20:59 Last Admin: 04/03/21 21:05 Dose: 2 sprays Documented by: Hydromorphone HCl (Hydromorphone Inj 0.5 Mg/0.5 Ml Syr) 0.5 mg IV Q3H PRN PRN Reason: MODERATE Pain (Scale 4,5,6) & Pre PT Stop: 04/15/21 13:10 Hydromorphone HCl (Hydromorphone Inj 1 Mg/Ml Syringe) 1 mg IV Q3H PRN PRN Reason: SEVERE Pain (Scale 7,8,9,10) Stop: 04/15/21 13:10 Hydroxyzine HCl (Hydroxyzine Hcl 25 Mg Tab) 25 mg PO Q8H PRN PRN Reason: Anxiety Stop: 05/01/21 13:10 Promethazine HCl 12.5 mg/ (Sodium Chloride) 50.5 mls @ 202 mls/hr IV Q6H PRN PRN Reason: Nausea &/or Vomiting Stop: 05/01/21 13:10 Acetaminophen (Ofirmev) 1,000 mg in 100 mls @ 400 mls/hr IV Q8H PRN PRN Reason: Pain Rating 1-3 & Pre PT Stop: 04/04/21 13:10 Lorazepam (Ativan) 0.5 mg in 1 mls @ 1 mls/min IV Q8H PRN PRN Reason: Sedation/Anxiety Stop: 05/01/21 13:10 Dexamethasone 6 mg/ Syringe 1.5 mls @ 1 mls/min IV DAILY [facility] Stop: 04/04/21 09:02 Last Admin: 04/03/21 11:27 Dose: 1 mls/min Documented by: Influenza Virus Vaccine Quadrival (Do Not Administer Flu Vaccine) 1 ea N/A PRN PRN PRN Reason: Notification Stop: 05/01/21 13:10 Isosorbide Mononitrate (Isosorbide [place] Extended Rel 60 Mg [facility]cr) [facility]: 05/02/21 08:59 Last Admin: 04/03/21 09:26 Dose: 60 mg Documented by: Labetalol HCl (Labetalol Hcl 200 Mg Tab) 400 mg PO BID [facility] Stop: 05/01/21 20:59 Last Admin: 04/03/21 21:06 Dose: 400 mg Documented by: Lorazepam (Lorazepam 0.5 Mg Tab) 0.5 mg PO Q8H PRN PRN Reason: Sedation/Anxiety Stop: 05/01/21 13:10 Losartan Potassium (Losartan Potassium 50 Mg Tab) 100 mg PO [facility] Stop: 05/01/21 20:59 Last Admin: 04/03/21 21:07 Dose: 100 mg Documented by: Magnesium Chloride (Magnesium Chloride 64mg Delayed Rel Tab) 128 mg PO HS [facility] Stop: 05/01/21 20:59 Last Admin: 04/03/21 21:06 Dose: 128 mg Documented by: Magnesium Hydroxide (Magnesium Hydroxide Susp 30 Ml Udc) 30 ml PO Q24H PRN PRN Reason: Constipation Stop: 05/01/21 13:10 Metoclopramide HCl (Metoclopramide Hcl Inj 5 Mg/Ml 2 Ml Vial) 10 mg IV Q6H PRN PRN Reason: Nausea &/or Vomiting Stop: 05/01/21 13:10 Miscellaneous (Cyclosporine [Cequa] 0.09 % ~ Order Awaiting Action) 1 ea N/A QS [facility] Stop: 05/01/21 15:59 Last Admin: 04/03/21 22:21 Dose: Not Given Documented by: Montelukast Sodium (Montelukast Sodium 10 Mg Tablet) 10 mg PO HS [facility] Stop: 05/01/21 20:59 Last Admin: 04/03/21 21:07 Dose: 10 mg Documented by: Multivitamins/Minerals (Cerovite Adv Formula Tab) 1 tab PO QAM [facility] Stop: 05/02/21 08:59 Last Admin: 04/03/21 09:26 Dose: 1 tab Documented by: Naloxone HCl (Naloxone Hcl 0.4 Mg/1 Ml Vial/Carp) 0.1 mg IV Q5M PRN PRN Reason: Oversedation/Resp depression Stop: 05/01/21 13:10 Nitroglycerin (Nitroglycerin Sl 0.4 Mg/Tab Tab) 0.4 mg SL UD PRN PRN Reason: Chest Pain Stop: 05/01/21 13:10 Olodaterol (Olodaterol Hcl 2.5mcg/Actuation 60 Puffs/Inhaler) 2 puffs INH DAILY [facility] Stop: 05/02/21 08:59 Last Admin: 04/03/21 09:25 Dose: 2 puffs Documented by: Ondansetron HCl (Ondansetron Inj 2 Mg/Ml 2 Ml Vial) 4 mg IV Q6H PRN PRN Reason: Nausea &/or Vomiting Stop: 05/01/21 13:10 Ondansetron HCl (Ondansetron 4 Mg Od Tab) 4 mg PO Q6H PRN PRN Reason: Nausea Stop: 05/01/21 13:10 Oxycodone HCl (Oxycodone Hcl Ir 5 Mg Tab (Immediate Release)) 5 - 10 mg PO Q4H PRN PRN Reason: Pain & Pre PT Stop: 04/15/21 13:10 Pantoprazole Sodium (Pantoprazole 40 Mg Tab) 40 mg PO QPM [facility] Stop: 05/01/21 20:59 Last Admin: 04/03/21 21:07 Dose: 40 mg Documented by: Pneumococcal Polyvalent Vaccine (Do Not Administer Pneumococcal Vaccine) 1 ea N/A PRN PRN PRN Reason: Notification Stop: 05/01/21 13:10 Probenecid (Probenecid 500 Mg Tab) 500 mg PO BID [facility] Stop: 05/01/21 20:59 Last Admin: 04/03/21 21:06 Dose: 500 mg Documented by: Senna/Docusate Sodium (Docusate Sodium/Senna 50/8.6mg Tab) 2 tab PO HS [facility] Stop: 05/01/21 20:59 Last Admin: 04/03/21 21:07 Dose: 2 tab Documented by: Sodium Biphosphate/Sodium Phosphate (Sod Phosphate/Sod Biphosphate Enema 132 Ml Btl) 132 ml [place] ONE PRN PRN Reason: Constipation Stop: 05/01/21 13:10 Tamsulosin HCl (Tamsulosin Hcl 0.4 Mg Cap) 0.4 mg PO BID [facility] Stop: 05/01/21 20:59 Last Admin: 04/03/21 21:06 Dose: 0.4 mg Documented by:
[2021-04-04 05:50] LABS: Hematocrit (blood only) 35.8 % (42-52); Hemoglobin 11.4 g/dL (14.0-18.0)
[2021-04-04 06:19] LABS: Calcium 8.9 mg/dl (8.5-10.1); Est GFR (African American) 64.3 ml/min; Est GFR (Non-African American) 55.5 ml/min; Potassium 4.1 mmol/L (3.5-5.1)
[2021-04-04] MEDS: FLUTICASONE FUROATE 200MCG 14 PUFFS/INHALER INH SCH (08:11)
[2021-04-04] MEDS: dexAMETHasone 6 MG in SYRINGE 0 ML IV SCH (08:12)
[2021-04-04] MEDS: ASPIRIN 81 MG ECTAB PO SCH (08:12)
[2021-04-04] MEDS: LABETALOL HCL 200 MG TAB PO SCH (08:13)
[2021-04-04] MEDS: TAMSULOSIN HCL 0.4 MG CAP PO SCH (08:13)
[2021-04-04] MEDS: CEROVITE ADV FORMULA TAB PO SCH (08:13)
[2021-04-04] MEDS: ISOSORBIDE MONO EXTENDED REL 60 MG TABCR PO SCH (08:14)
[2021-04-04] MEDS: PROBENECID 500 MG TAB PO SCH (08:14)
[2021-04-04] MEDS: OLODATEROL HCL 2.5MCG/ACTUATION 60 PUFFS/INHALER INH SCH (08:14)
--- NOTE | 2021-04-04 10:35 | Discharge Summary ---
Date of Service April 04, 2021 Admission HPI Per Admitting Provider This is a 81-year-old male presents with chronic persistent back and leg pain after failing course of nonoperative care is here for surgical invention. Principal Diagnosis Lumbar spinal stenosis with neurogenic medication Discharge Data Allergies Allergy/AdvReac Type Severity Reaction Status Date / Time diphtheria,pertussis Allergy Severe arm Verified 04/01/21 06:00 (acellular),te swelling [From Adacel(Tdap and redness Adolesn/Adult)(PF)] Iodinated Contrast Media Allergy Severe Hives Verified 04/01/21 06:00 dissolvable stitches AdvReac Severe does not Uncoded 04/01/21 06:00 disolve Consultations 04/01/21 13:11 Consult Hospitalist Routine Procedures Performed Operation Date: 04/01/21 07:15 Actual Procedures p L3-L4 Decompression Fusion, Spinal Cord Monitoring(Not Applicable) - Rmao Antonio DO s L4-S1 Hardware Removal,(Not Applicable) - Ramo Antonio DO Ordered Studies 04/01/21 07:15 FL lumbar spine 2-3V Routine Hospital Course (1) Neurogenic claudication due to lumbar spinal stenosis: Patient 1 lumbar decompression fusion tolerated this well stable orthopedic floor postoperative. Postop day 1 he was up and ambulating progressive postop day #2 postop day #3 JORGE drain decreasing appropriately. Excellent strength testing. Pain well controlled. Subsequently discharged home. Discharge orders and instructions found the chart for further review. Total Time Total Time Spent Total Time Spent (In Minutes): 20 minutes Discharge Plan Discharge Items Patient Disposition: Home - Self-Care Reason For Visit: Spinal Stenosis, Lumbar Region with Neurogenic Cla Discharge Diagnosis: Lumbar spinal stenosis with neurogenic claudication Activity: As commented below Non-emergency contact: Primary Care Provider Call non-emergency contact if: you have any medication questions Follow-up/Referrals: Janeen Moreno [Primary Care Provider] - Diet: Regular Addtl Attending Provider Instructions: ACTIVITY RECOMMENDATIONS: SELF CARE INSTRUCTIONS AFTER THORACIC/LUMBAR FUSIONS 1. You may walk to your tolerance. It is good exercise for your legs and back. Expect some back and intermittent leg aches and pains. 2. You may perform "counter-top" level activities (make a sandwich, yesika with a project, etc.). 3. No bending or lifting of more than 10 pounds or back twisting of any nature (roll like a log when turning in bed). 4. You may ride in a car for 20-30 minutes at a time. No driving until after your first visit with your doctor. 5. Frequent changes of position and restricting sitting to 30 minutes at a time will help limit the amount of back spasms and stiffness you may experience. 6. You may discontinue the use of ambulatory aids (cane, crutches, etc.) once your strength and confidence allow. 7. 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 Do not take a tub bath, sit in a hot tub or go into a swimming pool until after your first recheck in the office. SPECIAL CARE INSTRUCTIONS: VERY IMPORTANT TO READ AND REVIEW A. Your surgical incision has been closed with a cosmetic suture under the skin that will dissolve in about 6 weeks. In 14 days, you can use a pair of clean scissors and cut the suture that is left outside of the skin at the ends of your incision. 1. The small skin tapes can be removed 7 days after surgery if they have not fallen off by that point. 2. You may keep the wound open to air as much as possible to promote healing after post-op day number 5 unless told otherwise by your doctor. 3. If you think the wound looks like it is becoming infected (redness or worsening drainage) and/or you are experiencing fever, chill or worsening back pain and muscle spasms, contact the office so that we may evaluate you as soon as possible. B. Complications are uncommon, but please contact us if you have any signs or symptoms of: 1. wound infection (fever higher than 102.5 degrees F, redness, separation of wound, drainage, or increasing pain from the incision) 2. blood clots in legs (pain, swelling, redness and warmth in legs) 3. urinary tract infection (fever higher than 102.5 degrees F, burning upon urination or increased frequency of urination) 4. nerve problems (inability to walk on your toes or heels, numbness, loss of bowel or bladder control) 5. any other symptoms that concern you C. Please call the office at if you have any concerns or questions about your operation or recovery. D. No smoking! Smoking drastically decreases the chance of a solid fusion. E. Do not take any anti-inflammatory medications (Indocin, Advil, Motrin, Aspirin, Naprosyn, etc.) as these may inhibit the chance of a solid fusion. Tylenol is okay to take for pain. MANAGING PAIN AFTER SPINAL SURGERY 1. Narcotic medication is intended for short-term use and will be provided for surgical pain. Surgical pain usually lasts for a period of 4-6 weeks. Narcotic medication includes Percocet, Vicodin, Darvocet, Tylenol #3 or Lortab. 2. Longer-term pain is more appropriately treated with non-narcotic medication such as Tylenol ES. 3. Muscle spasm is not appropriately treated with narcotics. Muscle relaxers such as Soma, Flexeril or Skelaxin can be used along with Tylenol ES. 4. Remember that we all live with some "aches and pains". This is not unusual or uncommon after an injury or as we get older. a. Back pain is expected and may include muscle spasms for 4 to 6 weeks after surgery. The pain should gradually improve. If the pain worsens for no apparent reason, please contact the office. b. Intermittent leg pain may also be experienced and should not be concerned about unless it worsens for no apparent reason. If so, please contact the office. 5. We will provide appropriate medication within the normal guidelines of their prescribed use. We will also be very cautious and aware of potential abuse and extended duration of patients' medication needs. a. Pain medications are for your comfort and to assist with sleep and rest so that the tissue can heal. They are not provided in order to return to normal activity and should not be used through the day. To do so or worsening pain at night can result from ongoing tissue damage and development of tolerance to the prescribed medicine. 6. Please allow 2-3 days to process refills. Prescriptions will not be mailed but must be picked up at the office. FOLLOW UP VISIT: Keep your scheduled follow-up appointment. Any questions, please call the office at . Pending Studies at Discharge: No Stand-Alone Forms: [employer], Smoking Cessation Medications and DC Order Prescriptions: New oxycodone 5 mg tablet 5 mg PO Q6H PRN (Reason: pain, severe) Qty: 30 RF: 0 tramadol 50 mg tablet 50 mg PO Q6H PRN (Reason: pain, moderate) Qty: 30 RF: 0 Continued albuterol sulfate 2.5 mg /3 mL (0.083 %) Solution For Nebulization 2.5 mg INHALATION Q4H PRN (Reason: sob) RF: 0 isosorbide mononitrate 60 mg Tablet Extended Release 24 Hr 60 mg PO QAM RF: 0 tamsulosin 0.4 mg Capsule 0.4 mg PO BID RF: 0 pantoprazole 40 mg Tablet,Delayed Release (Dr/Ec) 40 mg PO QPM RF: 0 nitroglycerin [Nitrostat] 0.4 mg Tablet, Sublingual 0.4 mg buccal UD PRN (Reason: Chest Pain) RF: 0 montelukast 10 mg Tablet 10 mg PO HS RF: 0 albuterol sulfate 90 mcg/actuation Hfa Aerosol Inhaler 1 inh INHALATION QID PRN (Reason: sob) RF: 0 losartan [Cozaar] 100 mg Tablet 100 mg PO HS RF: 0 probenecid 500 mg Tablet 500 mg PO BID RF: 0 Metamucil 3.4 gram/5.4 gram Powder 1 tbsp PO HS RF: 0 Multivitamin 50 Plus Tablet 1 tab PO QAM RF: 0 aspirin [Aspirin Low Dose] 81 mg Tablet,Delayed Release (Dr/Ec) 81 mg PO QAM RF: 0 Serevent Diskus 50 mcg/dose Blister With Device 1 inh INHALATION BID RF: 0 Qvar RediHaler 80 mcg/actuation Hfa Aerosol Breath Activated 4 inh INHALATION Q12H RF: 0 Slow-Mag 71.5 mg Tablet,Delayed Release (Dr/Ec) 143 mg PO HS RF: 0 amlodipine [Norvasc] 5 mg Tablet 5 mg PO HS RF: 0 labetalol 300 mg Tablet 400 mg PO BID RF: 0 fluticasone propionate 50 mcg/actuation [place],Suspension 2 spray INTRANASAL BID RF: 0 Discontinued naproxen sodium [Aleve] 220 mg Tablet 220 mg PO BID PRN (Reason: Pain) RF: 0 Discharge Orders: Discharge Order (Routine); Ordered 04/04/21 Ordered By: Ramo Antonio Admission Data Admit Date/Time: 04/01/21 07:20 Attending Provider: Ramo Antonio Admit Provider: Ramo Antonio Primary Care Provider: Janeen Moreno Other Providers: Reece Sanchez
== END 2021-04-04 12:55 | disposition home or self-care (01) | DRG 454 ==
LOC: ASU 05:38 → PACUINP 07:20 → 3E 13:17